=== PATIENT | female | born 1965 | race Caucasian/White ===

== ENCOUNTER → 2016-11-25 | Outpatient (CLI) | payer OTHER ==
[~2016-11-25] MED LIST: AUGM875T27 PO; CYCL10TA PO; DIFL150T PO; NEUR300C PO; OXYC5CAP28 PO
--- NOTE | 2016-11-28 00:24 | ECWPNPC ---
PATIENT NAME: LOU FIGUEROA : 1965 GENDER: FEMALE VISIT DATE: 11/25/2016 DISCHARGE DATE: 11/25/16 1252 VISIT LOCKED DATE TIME: PHYSICIAN: KANDICE WELDON RESOURCE: KANDICE WELDON REASON FOR APPOINTMENT 1. BACK PAIN HISTORY OF PRESENT ILLNESS HISTORY OF PRESENT ILLNESS: PAIN THE PATIENT DESCRIBES THE PAIN... 51 YEAR OLD FEMALE PATIENT WITH HISTORY OF CHRONIC BACK PAIN. PATIENT DESCRIBES THE PAIN ACHING, SORE, AND HAVING IT ALL THE TIME WITH A PAIN SCORE OF 7/10. PATIENT STATES THAT THE ULCER ON THE BACK HAS HEALED BUT SHE HAS DEVELOPED THEM ON HER SHOULDERS, PATIENT'S PRIMARY TESTED FOR MRSA AND IT CAME BACK NEGATIVE. PATIENT IS GOING TO BE TESTED AGAIN THIS WEEK. CURRENTLY MRS. LOUIE IS USING GABAPENTIN AND IBUPROFEN WHICH SHE STATES DOES HELP WITH THE PAIN. AT THIS TIME ANY ACTIVITY INCLUDING STANDING, WALKING, AND SITTING FOR TOO LONG INCREASES THE PAIN IN HER LOWER BACK. PATIENT REPORTS STILL HAVING BAD LEG CRAMPS THROUGHOUT THE NIGHT. PATIENT DENIES UNEXPLAINABLE WEIGHT LOSS, FEVER, CHILLS, NEW CHANGES ON HER URINARY OR BOWEL CONTROL. FALL RISK SCREENING: SCREENING :NO FALLS IN THE PAST YEAR CURRENT MEDICATIONS TAKING IBUPROFEN 800 MG TABLET 1 TABLET ORALLY WITH FOOD PRN THREE TIMES A DAY FOR PAIN, NOTES: 08/13/16 2030 TAKING GABAPENTIN 300 MG CAPSULE 1 CAPSULE ORALLY THREE TIMES A DAY, NOTES: 08/14/16 0500 TAKING VITAMIN D 2000 UNIT TABLET 1 TABLET ORALLY ONCE A DAY, NOTES: 08/14/16 0500 NOT-TAKING VITAMIN B-2 .1.25 TABLET 1 TABLET WITH A MEAL ORALLY WEEKLY NOT-TAKING NAPROXEN 500 MG TABLET 1 TABLET NEEDED ORALLY EVERY 12 HRS MEDICATION LIST REVIEWED AND RECONCILED WITH THE PATIENT PAST MEDICAL HISTORY NONE ALLERGIES LATEX (FOR ALLERGY USE ONLY): HIVES CIPRO: HIVES PLASTIC SURGICAL TAPE: BLISTERS SURGICAL HISTORY SPINAL FUSION 05/19/2015 INFECTION CLEAN OUT FROM FUSION SITE 07/24/2015 NECK FUSION 06/2006 CSF LEAK 07/25/08 LEFT KNEE MENISCUS REPAIR 05/2010 GALLBLADDER REMOVAL 2004 TUBAL LIGATION 1996 ANTERIOR NECK FUSION 01/2006 FAMILY HISTORY NO FAMILY HISTORY DOCUMENTED. 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 NEW PATIENT PAIN DIARY TODAY'S VISITNOTES FROM 0-10, WHAT LEVEL IS YOUR PAIN TODAY?0 PAIN CLINIC PFS, CLERGY, PUBLIC HEALTH REFERRALS PFS REFERRAL NEEDED?NO CLERGY REFERRAL NEEDED?NO PUBLIC HEALTH REFERRAL NEEDED?NO WAS THE PROVIDER NOTIFIED OF ANY PERTINENT INFO?NO PFS REFERRAL NEEDED?NO CLERGY REFERRAL NEEDED?NO PUBLIC HEALTH REFERRAL NEEDED?NO WAS THE PROVIDER NOTIFIED OF ANY PERTINENT INFO?NO HOSPITALIZATION/MAJOR DIAGNOSTIC PROCEDURE SPINAL FUSION 05/19/15 BONE INFECTION 07/24/15 ANTERIOR NECK 06/2006 CSF LEAK REVIEW OF SYSTEMS CONSTITUTIONAL: ANY CHANGE IN YOUR MEDICAL CONDITION? NO . CHILLS NO . FEVER NO . INFECTION: DO YOU HAVE NEW INFECTIONS? NO . DO YOU HAVE HISTORY OF MRSA? YES ON BACK, STILL HAS OPEN LESIONS ON SHOULDERS. TESTED (-) ON 11/14/16 . MUSCULOSKELETAL: ANY NEW PATTERNS OF PAIN OR NUMBNESS? NO . GASTROENTEROLOGY: ANY NEW CHANGE IN BOWEL CONTROL? NO . GENITOURINARY: ANY NEW CHANGE IN BLADDER CONTROL? NO . IS THERE A CHANCE YOU COULD BE ? NO . HEMATOLOGY/LYMPH: DO YOU TAKE ANY BLOOD THINNERS? (FOR EXAMPLE- COUMADIN, PLAVIX, AGGRENOX, PLATEL, PRADAXA, OR XARELTO) NO . WHEN WAS YOUR LAST DOSE? DATE: TIME: . NEUROLOGY: HAVE YOU FALLEN IN THE PAST 6 MONTHS? NO . ANY NEW EXTREMITY NUMBNESS OR WEAKNESS? NO . CARDIOLOGY: DO YOU HAVE A PACEMAKER OR DEFIBRILLATOR? NO . RESPIRATORY: HAVE YOU BEEN SICK IN THE PAST WEEK? NO . FEVER NO . FLU LIKE SYMPTOMS? NO . COUGH NO . INTEGUMENTARY: DO YOU HAVE ANY RASHES OR OPEN SORES? YES, LESIONS BILAT. SHOULDERS . ALLERGIC/IMMUNO: ARE YOU ALLERGIC TO SHELLFISH OR IV DYE? NO . ANY NEW ALLERGIES? NO . PSYCHIATRIC: DO YOU HAVE THOUGHTS OF HURTING YOURSELF OR SOMEONE ELSE? NO . ARE YOU ABUSED, NEGLECTED, OR IN AN UNSAFE ENVIRONMENT? NO . ENDOCRINOLOGY: ARE YOU DIABETIC? NO . OTHER: DO YOU NEED ANY PRESCRIPTIONS? NO . IF YES, PLEASE LIST: ____ . ANY NEW PROBLEMS WITH YOUR MEDICATIONS? NO . WHEN DID YOU LAST EAT? ____ . WHEN DID YOU LAST DRINK? ____ . WHAT DID YOU LAST DRINK? ____ . NAME OF PERSON DRIVING YOU HOME? ____ . DO YOU HAVE ANY OTHER QUESTIONS OR CONCERNS NO . REVIEWED BY: PROVIDER: KANDICE WELDON MD . VITAL SIGNS WT 239 LBS, HT 62 IN, BMI 43.71 INDEX, BP 151/87 MM HG, HR 94 /MIN, RR 18 /MIN, TEMP 98.2 F, OXYGEN SAT % 98, NA INITIALS TL 1014, REVIEWED BY: AD. EXAMINATION : PATIENT IS ALERT O X 3 AND COOPERATIVE. TENDERNESS IN THE SACROILIAC JOINT AND LOWER BACK AREA. PATIENT RECEIVED MRI ON 07/02/16 OF LUMBAR SPINE THAT SHOWS SCAR TISSUE FROM L3-L5, DISC BULGES AT L2-L3 THROUGH L5-S1, AND FLUID COLLECTION HAS DISSIPATED. PATIENT HAS AN ULCER NEAR THE LAMINECTOMY SITE. PATIENT WALK IS ANTALGIC. LEFT LEG IS WEAKER THEN THE RIGHT AT EXTENSION AND FLEXION. 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 LOUIE'S PAIN MANAGEMENT CASE. AT THIS TIME THE PATIENT WILL CONTINUE WITH THE SAME MEDICATION REGIME BEFORE. WE DISCUSSED MOVING FORWARD WITH INJECTIONS BUT I WOULD LIKE TO GET A CLEARANCE FROM THE PATIENT'S PRIMARY TO BE CERTAIN THE PATIENT DOES NOT HAVE MRSA. I AM GOING TO CHECK ON THE PREVIOUS AUTHORIZATION WE HAVE FOR THE PATIENT. IF WE RECEIVE CLEARANCE FROM THE PRIMARY WE WILL MOVE FORWARD WITH THE INJECTION, HOWEVER, IF THE PATIENT DOES NOT GET CLEARED THE PATIENT WILL RETURN TO THE CLINIC IN 1 MONTH TO FURTHER DISCUSS HER CASE. INSTRUCTIONS WERE GIVEN, QUESTIONS WERE ANSWERED, PATIENT REPORTS UNDERSTANDING AND AGREES WITH THE PLAN. I, KRISTOFER MACDONALD, DOCUMENTED THE ABOVE INFORMATION ACTING A SCRIBE FOR DR. WLEDON. I HAVE REVIEWED THE ABOVE DOCUMENT, WRITTEN BY KRISTOFER MARTINEZ AND I VERIFY THAT IT IS ACCURATE. PROCEDURE CODES FA211 ESTABILISHED PATIENT [facility] CHARGE G8427 DOC MEDS VERIFIED W/PT OR RE I9330 PAIN ASSESS POS TOOL F/U PLAN DOC FOLLOW UP 4 WEEKS ELECTRONICALLY SIGNED BY KANDICE WELDON MD ON 11/27/2016 AT 01:21 PM EST DISCLAIMER : THIS IS A VISIT SUMMARY EXTRACTED FROM THE [employer] CHART. IT IS NOT A COPY OF THE [employer] PROGRESS NOTE. AMILCAR
== END ==
LOC: M PAIN 10:20
PROVIDERS: ATTEND Anesthesiology
DX: M96.1 Postlaminectomy syndrome, not elsewhere classified (principal); M51.17 Intervertebral disc disorders with radiculopathy, lumbosacral region; M51.16 Intervertebral disc disorders with radiculopathy, lumbar region; Z79.899 Other long term (current) drug therapy; Z91.040 Latex allergy status; Z88.1 Allergy status to other antibiotic agents; Z91.09 Other allergy status, other than to drugs and biological substances

== ENCOUNTER → 2016-11-28 | Outpatient (REF) | payer OTHER | LOC: M LAB REF 15:13 | PROVIDERS: ATTEND Family Medicine | DX: Z86.14 Personal history of Methicillin resistant Staphylococcus aureus infection (principal) ==

== ENCOUNTER → 2017-01-28 | Outpatient (CLI) | payer OTHER ==
--- NOTE | 2017-02-04 02:27 | ECWPNPC ---
PATIENT NAME: LOU FIGUEROA : 1965 GENDER: FEMALE VISIT DATE: 01/28/2017 DISCHARGE DATE: 01/28/178 VISIT LOCKED DATE TIME: PHYSICIAN: KANDICE WELDON RESOURCE: KANDICE WELDON REASON FOR APPOINTMENT 1. FOLLOW UP HISTORY OF PRESENT ILLNESS HISTORY OF PRESENT ILLNESS: PAIN THE PATIENT DESCRIBES THE PAIN... 51 YEAR OLD FEMALE PATIENT WITH HISTORY OF CHRONIC BACK PAIN. PATIENT DESCRIBES THE PAIN HAVING IT ALL THE TIME WITH A PAIN SCORE OF 8-9/10 ON TODAY'S VISIT. PATIENT REPORTS THAT THE PAIN STARTED ABOUT 2 YEARS AGO AFTER BACK SURGERY AND THE PATIENT IS FAR WORST NOW THAT BEFORE THE SURGERY. PATIENT REPORTS THAT SHE SAW HER PCP OVER A MONTH AGO AND THEY RAN THE TEST A THIRD TIME FOR MRSA AND SHE WAS NEGATIVE. PATIENT REPORTS THAT SHE HAS RADIATING PAIN DOWN THE SIDE OF HER LEFT LEG INTO HER LEFT FOOT FROM HER BACK. PATIENT REPORTS THAT HER BACK HURTS THE MOST TODAY. SOME DAYS SHE HAS A DIFFICULT TIME WALKING AND STANDING, TODAY SHE REPORTS THAT SHE IS NOT DOING TOO BAD. PATIENT REPORTS THAT THE MEDICATION DOES NOT TAKE ALL THE PAIN AWAY, BUT IT WOULD BE WORST WITHOUT THEM. PATIENT STATES THAT THE ULCER SHE HAD ON THE LAST VISIT IS HEALED UP AT THIS POINT. , PATIENT DENIES UNEXPLAINABLE WEIGHT LOSS, FEVER, CHILLS, NEW CHANGES ON HER URINARY OR BOWEL CONTROL. FALL RISK SCREENING: SCREENING :NO FALLS IN THE PAST YEAR CURRENT MEDICATIONS TAKING IBUPROFEN 800 MG TABLET 1 TABLET ORALLY WITH FOOD PRN THREE TIMES A DAY FOR PAIN, NOTES: 08/13/16 2030 TAKING GABAPENTIN 300 MG CAPSULE 1 CAPSULE ORALLY THREE TIMES A DAY, NOTES: 08/14/16 0500 TAKING VITAMIN D 2000 UNIT TABLET 1 TABLET ORALLY ONCE A DAY, NOTES: 08/14/16 0500 TAKING ZYRTEC 10 MG TABLET 1 TABLET ORALLY ONCE A DAY NOT-TAKING VITAMIN B-2 .1.25 TABLET 1 TABLET WITH A MEAL ORALLY WEEKLY NOT-TAKING NAPROXEN 500 MG TABLET 1 TABLET NEEDED ORALLY EVERY 12 HRS MEDICATION LIST REVIEWED AND RECONCILED WITH THE PATIENT PAST MEDICAL HISTORY NONE ALLERGIES LATEX (FOR ALLERGY USE ONLY): HIVES CIPRO: HIVES PLASTIC SURGICAL TAPE: BLISTERS SURGICAL HISTORY SPINAL FUSION 05/19/2015 INFECTION CLEAN OUT FROM FUSION SITE 07/24/2015 NECK FUSION 06/2006 CSF LEAK 07/25/08 LEFT KNEE MENISCUS REPAIR 05/2010 GALLBLADDER REMOVAL 2004 TUBAL LIGATION 1996 ANTERIOR NECK FUSION 01/2006 FAMILY HISTORY NO FAMILY HISTORY DOCUMENTED. 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 NEW PATIENT PAIN DIARY TODAY'S VISITNOTES FROM 0-10, WHAT LEVEL IS YOUR PAIN TODAY?0 PAIN CLINIC PFS, CLERGY, PUBLIC HEALTH REFERRALS PFS REFERRAL NEEDED?NO CLERGY REFERRAL NEEDED?NO PUBLIC HEALTH REFERRAL NEEDED?NO WAS THE PROVIDER NOTIFIED OF ANY PERTINENT INFO?NO PFS REFERRAL NEEDED?NO CLERGY REFERRAL NEEDED?NO PUBLIC HEALTH REFERRAL NEEDED?NO WAS THE PROVIDER NOTIFIED OF ANY PERTINENT INFO?NO HOSPITALIZATION/MAJOR DIAGNOSTIC PROCEDURE SPINAL FUSION 05/19/15 BONE INFECTION 07/24/15 ANTERIOR NECK 06/2006 CSF LEAK REVIEW OF SYSTEMS CONSTITUTIONAL: ANY CHANGE IN YOUR MEDICAL CONDITION? NO . CHILLS NO . FEVER NO . INFECTION: DO YOU HAVE NEW INFECTIONS? NO . DO YOU HAVE HISTORY OF MRSA? NO . MUSCULOSKELETAL: ANY NEW PATTERNS OF PAIN OR NUMBNESS? YES PT REPORTS INCREASED PAIN LEVEL, AND PAIN HAS EXTENDED TO BOTTOM OF HER LEFT FOOT. NUMBNESS/TINGLING UNCHANGED . GASTROENTEROLOGY: ANY NEW CHANGE IN BOWEL CONTROL? NO . GENITOURINARY: ANY NEW CHANGE IN BLADDER CONTROL? NO . IS THERE A CHANCE YOU COULD BE ? NO . HEMATOLOGY/LYMPH: DO YOU TAKE ANY BLOOD THINNERS? (FOR EXAMPLE- COUMADIN, PLAVIX, AGGRENOX, PLATEL, PRADAXA, OR XARELTO) NO . WHEN WAS YOUR LAST DOSE? DATE: TIME: . NEUROLOGY: HAVE YOU FALLEN IN THE PAST 6 MONTHS? NO . ANY NEW EXTREMITY NUMBNESS OR WEAKNESS? NO . CARDIOLOGY: DO YOU HAVE A PACEMAKER OR DEFIBRILLATOR? NO . RESPIRATORY: HAVE YOU BEEN SICK IN THE PAST WEEK? NO . FEVER NO . FLU LIKE SYMPTOMS? NO . COUGH NO . INTEGUMENTARY: DO YOU HAVE ANY RASHES OR OPEN SORES? NO . ALLERGIC/IMMUNO: ARE YOU ALLERGIC TO SHELLFISH OR IV DYE? NO . ANY NEW ALLERGIES? NO . PSYCHIATRIC: DO YOU HAVE THOUGHTS OF HURTING YOURSELF OR SOMEONE ELSE? NO . ARE YOU ABUSED, NEGLECTED, OR IN AN UNSAFE ENVIRONMENT? NO . ENDOCRINOLOGY: ARE YOU DIABETIC? NO . OTHER: DO YOU NEED ANY PRESCRIPTIONS? YES MOTRIN . IF YES, PLEASE LIST: ____ . ANY NEW PROBLEMS WITH YOUR MEDICATIONS? NO . WHEN DID YOU LAST EAT? ____ . WHEN DID YOU LAST DRINK? ____ . WHAT DID YOU LAST DRINK? ____ . NAME OF PERSON DRIVING YOU HOME? ____ . DO YOU HAVE ANY OTHER QUESTIONS OR CONCERNS NO . REVIEWED BY: PROVIDER: KANDICE WELDON MD . VITAL SIGNS WT 247.4 LBS, HT 62 IN, BMI 45.25 INDEX, BP 161/85 MM HG, HR 91 /MIN, RR 18 /MIN, TEMP 97.7 F, OXYGEN SAT % 98, NA INITIALS HS. EXAMINATION : PATIENT IS ALERT O X 3 AND COOPERATIVE. PATIENT AMBULATES WITH A LIMP ON THE LEFT LEG. HER LEFT LEG IS WEAKER AT FLEXION AND EXTENSION COMPARED TO THE RIGHT. PATIENT HAS TENDERNESS IN THE LEFT LOW BACK AREA. PATIENT RECEIVED MRI ON 07/02/16 OF LUMBAR SPINE THAT SHOWS SCAR TISSUE FROM L3-L5, DISC BULGES AT L2-L3 THROUGH L5-S1, AND FLUID COLLECTION HAS DISSIPATED. ASSESSMENTS POSTLAMINECTOMY SYNDROME, NOT ELSEWHERE CLASSIFIED - M96.1 (PRIMARY) INTERVERTEBRAL DISC DISORDERS WITH RADICULOPATHY, LUMBAR REGION - M51.16 INTERVERTEBRAL DISC DISORDERS WITH RADICULOPATHY, LUMBOSACRAL REGION - M51.17 TREATMENT POSTLAMINECTOMY SYNDROME, NOT ELSEWHERE CLASSIFIED REFILL IBUPROFEN TABLET, 800 MG, 1 TABLET, ORALLY WITH FOOD, PRN THREE TIMES A DAY FOR PAIN, 30 DAY(S), 75, REFILLS 1, NOTES: 08/13/16 2030 REFILL GABAPENTIN CAPSULE, 300 MG, 1 CAPSULE, ORALLY, FOUR TIMES DAILY FOR PAIN MDD4, 30 DAY(S), 120, REFILLS 1, NOTES: 08/14/16 0500 NOTES: DISCUSSED SEVERAL ISSUES WITH MRS. LOUIE'S PAIN MANAGEMENT CASE. AT THIS TIME THE PATIENT WILL CONTINUE ON THE SAME MEDICATION REGIMEN BEFORE AND WILL RECEIVE REFILLS TODAY. SINCE THE PATIENT HAS BEEN CLEARED BY THE PRIMARY, I WILL CHECK ON THE CLEARANCE. AFTER EXAMINING THE PATIENT AND REVIEWING THE MRI PATIENT IS STILL A GOOD CANDIDATE FOR A TRANSFORAMINAL INJECTION. WE DISCUSSED THE RISK, BENEFITS, AND ALTERNATIVES AND THE PATIENT WOULD LIKE TO PROCEED. PATIENT WILL BE BOOKED PENDING APPROVAL. , INSTRUCTIONS WERE GIVEN, QUESTIONS WERE ANSWERED, PATIENT REPORTS UNDERSTANDING AND AGREES WITH THE PLAN. I, MARSHALL COHEN, DOCUMENTED THE ABOVE INFORMATION ACTING A SCRIBE FOR DR. WELDON. I HAVE REVIEWED THE ABOVE DOCUMENT, WRITTEN BY MARSHALL COHEN SCRIBE AND I VERIFY THAT IT IS ACCURATE. PREVENTIVE MEDICINE PAIN CLINIC TEACHING: PROCEDURE TEACHING TRANSFORAMINAL MARLYN REVIEWED WITH PATIENT. PROCEDURE CODES G8730 PAIN ASSESS POS TOOL F/U PLAN DOC G8427 DOC MEDS VERIFIED W/PT OR RE DISPOSITION & COMMUNICATION FOLLOW UP LUMBAR TRANSFORAMINAL PENDING APPROVAL ELECTRONICALLY SIGNED BY KANDICE WELDON MD ON 02/03/2017 AT 05:46 PM EDT DISCLAIMER : THIS IS A VISIT SUMMARY EXTRACTED FROM THE [employer] CHART. IT IS NOT A COPY OF THE [employer] PROGRESS NOTE. AMILCAR
== END ==
LOC: M PAIN 15:40
PROVIDERS: ATTEND Anesthesiology
DX: Z09 Encounter for follow-up examination after completed treatment for conditions other than malignant neoplasm (principal); G89.29 Other chronic pain; M96.1 Postlaminectomy syndrome, not elsewhere classified; M51.16 Intervertebral disc disorders with radiculopathy, lumbar region; M51.17 Intervertebral disc disorders with radiculopathy, lumbosacral region; Z91.040 Latex allergy status; L23.1 Allergic contact dermatitis due to adhesives; Z79.1 Long term (current) use of non-steroidal anti-inflammatories (NSAID); Z79.899 Other long term (current) drug therapy

== ENCOUNTER → 2017-02-21 | Outpatient (CLI) | payer OTHER ==
[~2017-02-21] MED LIST changes: +BUPIVACAINE HCL 0.25% 30 ML VIAL As Ordered ONE; +CLINDAMYCIN 600 MG in APPROPRIATE DILUENT 1 EA IV ONE; +ISOVUE-M 300 61% 15ML VIAL (Q9967) As Ordered ONE; +LIDOCAINE 1% SDV INJ 30 ML VIAL As Ordered ONE; +MIDAZOLAM INJ 2 MG/2 ML VIAL (J2250) As Ordered ONE; +dexameTHASONE 10 MG/1 ML VIAL PRES.FREE (J1100) As Ordered ONE; +fentaNYL 100 MCG/2 ML INJECTION (J3010) As Ordered ONE
--- NOTE | 2017-02-21 16:18 | REP ---
Partial lumbar spine series: 47 views. History: Injection procedure for pain. 1 minute 52 seconds of fluoroscopy time is reported. Findings: A sequence of 47 fluoroscopically obtained spot radiographs of the lumbar spine document needle position and contrast injection associated with transforaminal injection procedure. Signed by Stefan Cazares MD 02/21/2017 06:00 P
--- NOTE | 2017-03-03 00:12 | ECWPNPC ---
PATIENT NAME: LOU FIGUEROA : 1965 GENDER: FEMALE VISIT DATE: 02/21/2017 DISCHARGE DATE: 02/21/17 1521 VISIT LOCKED DATE TIME: PHYSICIAN: KANDICE WELDON RESOURCE: KANDICE WELDON REASON FOR APPOINTMENT 1. LEFT TRANSFORAMINAL HISTORY OF PRESENT ILLNESS HISTORY OF PRESENT ILLNESS: PAIN THE PATIENT DESCRIBES THE PAIN... FALL RISK SCREENING: SCREENING :NO FALLS IN THE PAST YEAR CURRENT MEDICATIONS TAKING IBUPROFEN 800 MG TABLET 1 TABLET ORALLY WITH FOOD PRN THREE TIMES A DAY FOR PAIN, NOTES: 02/20/172029 TAKING GABAPENTIN 300 MG CAPSULE 1 CAPSULE ORALLY FOUR TIMES DAILY FOR PAIN MDD4, NOTES: 02/20/172029 TAKING VITAMIN D 2000 UNIT TABLET 1 TABLET ORALLY ONCE A DAY, NOTES: 02/20/17 TAKING ZYRTEC 10 MG TABLET 1 TABLET ORALLY ONCE A DAY, NOTES: 02/20/17 NOT-TAKING VITAMIN B-2 .1.25 TABLET 1 TABLET WITH A MEAL ORALLY WEEKLY NOT-TAKING NAPROXEN 500 MG TABLET 1 TABLET NEEDED ORALLY EVERY 12 HRS MEDICATION LIST REVIEWED AND RECONCILED WITH THE PATIENT PAST MEDICAL HISTORY NONE ALLERGIES LATEX (FOR ALLERGY USE ONLY): HIVES CIPRO: HIVES PLASTIC SURGICAL TAPE: BLISTERS SOCIAL HISTORY GENERAL: PAIN CLINIC PFS, CLERGY, PUBLIC HEALTH REFERRALS CLERGY REFERRAL NEEDED?NO WAS THE PROVIDER NOTIFIED OF ANY PERTINENT INFO?NO PFS REFERRAL NEEDED?NO PUBLIC HEALTH REFERRAL NEEDED?NO PATIENT: ____. REVIEW OF SYSTEMS CONSTITUTIONAL: ANY CHANGE IN YOUR MEDICAL CONDITION? NO . CHILLS NO . FEVER NO . INFECTION: DO YOU HAVE NEW INFECTIONS? NO . DO YOU HAVE HISTORY OF MRSA? YES PT STATES HX OF MRSA WITH 2 NEG CULTURES AFTER. . MUSCULOSKELETAL: ANY NEW PATTERNS OF PAIN OR NUMBNESS? NO . GASTROENTEROLOGY: ANY NEW CHANGE IN BOWEL CONTROL? NO . GENITOURINARY: ANY NEW CHANGE IN BLADDER CONTROL? NO . IS THERE A CHANCE YOU COULD BE ? NO . HEMATOLOGY/LYMPH: DO YOU TAKE ANY BLOOD THINNERS? (FOR EXAMPLE- COUMADIN, PLAVIX, AGGRENOX, PLATEL, PRADAXA, OR XARELTO) NO . WHEN WAS YOUR LAST DOSE? DATE: TIME: . NEUROLOGY: HAVE YOU FALLEN IN THE PAST 6 MONTHS? NO . ANY NEW EXTREMITY NUMBNESS OR WEAKNESS? NO . CARDIOLOGY: DO YOU HAVE A PACEMAKER OR DEFIBRILLATOR? NO . RESPIRATORY: HAVE YOU BEEN SICK IN THE PAST WEEK? NO . FEVER NO . FLU LIKE SYMPTOMS? NO . COUGH NO . INTEGUMENTARY: DO YOU HAVE ANY RASHES OR OPEN SORES? YES LEFT SHOULDER-VISUALIZED BY DR WELDON . ALLERGIC/IMMUNO: ARE YOU ALLERGIC TO SHELLFISH OR IV DYE? NO . ANY NEW ALLERGIES? NO . PSYCHIATRIC: DO YOU HAVE THOUGHTS OF HURTING YOURSELF OR SOMEONE ELSE? NO . ARE YOU ABUSED, NEGLECTED, OR IN AN UNSAFE ENVIRONMENT? NO . ENDOCRINOLOGY: ARE YOU DIABETIC? NO . OTHER: DO YOU NEED ANY PRESCRIPTIONS? NO . IF YES, PLEASE LIST: ____ . ANY NEW PROBLEMS WITH YOUR MEDICATIONS? NO . WHEN DID YOU LAST EAT? ____02/20/171929 . WHEN DID YOU LAST DRINK? ____02/20/172029 . WHAT DID YOU LAST DRINK? ____WATER . NAME OF PERSON DRIVING YOU HOME? ____CHARLIE . DO YOU HAVE ANY OTHER QUESTIONS OR CONCERNS NO . REVIEWED BY: PROVIDER: . VITAL SIGNS WT 237 LBS, HT 62 IN, BMI 43.34 INDEX, BP 156/87 MM HG, HR 76 /MIN, RR 18 /MIN, TEMP 99.3 F, OXYGEN SAT % 98%, NA INITIALS SC 11:02, REVIEWED BY: MLF. ASSESSMENTS INTERVERTEBRAL DISC DISORDERS WITH RADICULOPATHY, LUMBAR REGION - M51.16 (PRIMARY) PROCEDURES PN LUMBAR TRANSFORAMINAL BLOCKS PRE PROCEDURE DIAGNOSIS LUMBAR POST LAMINECTOMY PAIN SYNDROME POST PROCEDURE DIAGNOSIS LUMBAR POST LAMINECTOMY PAIN SYNDROME PROCEDURE LEFT L4 AND LEFT L5 TRANSFORAMINAL EPIDURAL STEROID INJECTION UNDER FLUOROSCOPIC GUIDANCE SURGEON DR KANDICE WELDON DEVELOPMENT COORDINATOR NONE ANESTHESIA LOCAL WITH IV SEDATION PRE PROCEDURE NOTE PATIENT WITH HISTORY OF CHRONIC LOW BACK PAIN. I EVALUATE THE PATIENT AND REVIEWED THE CHART. I WENT OVER THE RISKS, ALTERNATIVES, AND BENEFITS ASSOCIATED WITH THIS PROCEDURE. PATIENTS WANTS TO HAVE IV SEDATION DUE TO THE DISCOMFORT, PAIN, AND ANXIETY THIS PROCEDURE WILL CAUSE HER. I ALSO DISCUSSED THE CASE WITH THE PATIENTS PRIMARY CARE PHYSICIAN. THE PATIENT WOULD LIKE TO PROCEED AND GIVE CONSENT TO PERFORMED THE PROCEDURE WITH IV SEDATION. THE PATIENT DENIES UNEXPLAINABLE WEIGHT LOSS, FEVER, CHILLS, OR CHANGES IN URINARY OR BOWEL CONTROL DESCRIPTION OF PROCEDURE THE PATIENT WAS BROUGHT TO THE PROCEDURE ROOM AND PLACED IN THE PRONE POSITION. THE LUMBOSACRAL AREA WAS CLEANED WITH BETADINE SOLUTION AND DRAPED ASEPTICALLY. THE PROCEDURE WAS DONE UNDER STERILE CONDITIONS. I CHECKED LATERALITY AND THE LEVEL WHERE THE PROCEDURE WAS GOING TO BE PERFORMED WITH THE PATIENT AND THE SUPPORTING STAFF AT THE MOMENT OF THE TIME OUT IN THE PROCEDURE ROOM. UNDER FLUOROSCOPIC GUIDANCE, TARGETS WERE SELECTED AT THE LEFT TRANSFORAMINAL OPENING OF L4 AND L5. TARGET POINT WAS SELECTED AFTER LATERAL ROTATION AND TILT OF THE MAGNIFIER OF THE C-ARM. LIDOCAINE 0.5% WAS USED TO NUMB THE SKIN AND THE SUBCUTANEOUS TISSUE BELOW IT. AN EPIMED INTRODUCER 18-GAUGE WAS ADVANCED UNTIL WE WENT CLOSE TO THE SELECTED TRANSFORAMINAL OPENINGS. AFTER PROPER POSITION OF THE NEEDLES WAS ACHIEVED, A 22-GAUGE EPIMED NEEDLE WAS PLACED INSIDE OF THE INTRODUCER AND ADVANCED TO THE TRANSFORAMINAL OPENING OF THE SELECTED SITES. WHEN PROPER POSITION OF THE NEEDLE WAS ACHIEVED, ISOVUE M DYE 30%, 0.25 ML, WAS INJECTED SHOWING ADEQUATE SPREAD OF THE DYE. THIS WAS DONE UNDER DIGITAL SUBTRACTION AND ANGIOGRAPHY. THERE WAS NO VASCULAR UPDATE. THEN, A SOLUTION OF 2 ML OF BUPIVACAINE 0.25% AND DEXAMETHASONE 10 MG WAS INJECTED AT EACH SITE. PATIENT RECEIVED VERSED 2 MG AND FENTANYL 100 MCG IV DIVIDED DOSES. FACE TO FACE TIME WAS 45 MINUTES. THERE WAS NO EVIDENCE OF BLOOD, PARESTHESIA OR CEREBROSPINAL FLUID DURING THE PROCEDURE. THE PATIENT WAS SENT TO THE RECOVERY ROOM. THE PATIENT WAS MOVING THE EXTREMITIES AND DOING WELL. THERE WAS NO COMPLICATION DURING THE PROCEDURE. FLUOROSCOPY TIME WAS 1 MINUTE 52 SECONDS POST PROCEDURE NOTE THE PROCEDURE DONE WAS DISCUSSED WITH THE PATIENT. THE PATIENT WILL BE SEEN IN A FOLLOW UP IN THE NEXT FEW WEEKS. INSTRUCTIONS WERE GIVEN, QUESTIONS WERE ANSWERED, AND THE PATIENT EXPRESSED UNDERSTANDING AND AGREES WITH THE PLAN. I, MARSHALL COHEN, DOCUMENTED THE ABOVE INFORMATION ACTING A SCRIBE FOR DR. WELDON. I HAVE REVIEWED THE ABOVE DOCUMENT, WRITTEN BY MARSHALL COHEN SCRIBSelma AND I VERIFY THAT IT IS ACCURATE. DIAGNOSTIC IMAGING [facility] FLUORO GUIDE SPINE INJECTION (PAIN)[id number] PROCEDURE CODES 37072 INJ FORAMEN EPIDURAL L/S 56885 INJ FORAMEN EPIDURAL ADD-ON 6045F RADXPS IN END [id number] PXD 64591 MOD SED SAME PHYS/QHP 5/>YRS 08[address] [place] SED [place] PHYS/[place] [address] MOD SED SAME PHYS/QHP EA DISPOSITION & COMMUNICATION FOLLOW UP 3 WEEKS ELECTRONICALLY SIGNED BY KANDICE WELDON MD ON 03/02/2017 AT 05:52 PM EDT DISCLAIMER : THIS IS A VISIT SUMMARY EXTRACTED FROM THE [employer] CHART. IT IS NOT A COPY OF THE [employer] PROGRESS NOTE. AMILCAR
== END ==
LOC: M PAIN 11:00
PROVIDERS: ATTEND Anesthesiology
DX: G89.29 Other chronic pain (principal); M51.16 Intervertebral disc disorders with radiculopathy, lumbar region; Z91.040 Latex allergy status; Z88.8 Allergy status to other drugs, medicaments and biological substances; L23.1 Allergic contact dermatitis due to adhesives; Z79.1 Long term (current) use of non-steroidal anti-inflammatories (NSAID); Z79.899 Other long term (current) drug therapy
CPT/HCPCS: 64483; 64484; 99152; 99153; J1100; J2250; J3010; Q9967

== ENCOUNTER → 2017-03-11 | Outpatient (CLI) | payer OTHER ==
[~2017-03-11] MED LIST changes: -BUPIVACAINE HCL 0.25% 30 ML VIAL As Ordered ONE; -CLINDAMYCIN 600 MG in APPROPRIATE DILUENT 1 EA IV ONE; -ISOVUE-M 300 61% 15ML VIAL (Q9967) As Ordered ONE; -LIDOCAINE 1% SDV INJ 30 ML VIAL As Ordered ONE; -MIDAZOLAM INJ 2 MG/2 ML VIAL (J2250) As Ordered ONE; -dexameTHASONE 10 MG/1 ML VIAL PRES.FREE (J1100) As Ordered ONE; -fentaNYL 100 MCG/2 ML INJECTION (J3010) As Ordered ONE
--- NOTE | 2017-03-19 01:49 | ECWPNPC ---
PATIENT NAME: LOU FIGUEROA : 1965 GENDER: FEMALE VISIT DATE: 03/11/2017 DISCHARGE DATE: 03/11/17 170 VISIT LOCKED DATE TIME: PHYSICIAN: KANDICE WELDON RESOURCE: KANDICE WELDON REASON FOR APPOINTMENT 1. BACK HISTORY OF PRESENT ILLNESS HISTORY OF PRESENT ILLNESS: PAIN THE PATIENT DESCRIBES THE PAIN... 51 YEAR OLD FEMALE PATIENT WITH HISTORY OF CHRONIC BACK PAIN. PATIENT DESCRIBES THE PAIN BURNING AND HAVING IT ALL THE TIME WITH A PAIN SCORE OF 8/10 ON TODAY'S VISIT. PATIENT RECEIVED A LUMBAR TRANSFORAMINAL INJECTION ON 02/21/2017 AND STATES THAT SHE ONLY RECEIVED ONE DAY OF PAIN RELIEF. PATIENT REPORTS THAT SHE STILL HAS THE RADIATING PAIN THE LEGS, BUT TODAY HER BACK HURTS THE MOST. PATIENT DENIES UNEXPLAINABLE WEIGHT LOSS, FEVER, CHILLS, NEW CHANGES ON HER URINARY OR BOWEL CONTROL. FALL RISK SCREENING: SCREENING :NO FALLS IN THE PAST YEAR CURRENT MEDICATIONS TAKING IBUPROFEN 800 MG TABLET 1 TABLET ORALLY WITH FOOD PRN THREE TIMES A DAY FOR PAIN, NOTES: 02/20/172029 TAKING GABAPENTIN 300 MG CAPSULE 1 CAPSULE ORALLY FOUR TIMES DAILY FOR PAIN MDD4, NOTES: 02/20/172029 TAKING VITAMIN D 2000 UNIT TABLET 1 TABLET ORALLY ONCE A DAY, NOTES: 02/20/17 TAKING ZYRTEC 10 MG TABLET 1 TABLET ORALLY ONCE A DAY, NOTES: 02/20/17 NOT-TAKING VITAMIN B-2 .1.25 TABLET 1 TABLET WITH A MEAL ORALLY WEEKLY NOT-TAKING NAPROXEN 500 MG TABLET 1 TABLET NEEDED ORALLY EVERY 12 HRS MEDICATION LIST REVIEWED AND RECONCILED WITH THE PATIENT PAST MEDICAL HISTORY NONE ALLERGIES LATEX (FOR ALLERGY USE ONLY): HIVES CIPRO: HIVES PLASTIC SURGICAL TAPE: BLISTERS SURGICAL HISTORY SPINAL FUSION 05/19/2015 INFECTION CLEAN OUT FROM FUSION SITE 07/24/2015 NECK FUSION 06/2006 CSF LEAK 07/25/08 LEFT KNEE MENISCUS REPAIR 05/2010 GALLBLADDER REMOVAL 2004 TUBAL LIGATION 1996 ANTERIOR NECK FUSION 01/2006 FAMILY HISTORY NO FAMILY HISTORY DOCUMENTED. SOCIAL HISTORY GENERAL: PAIN CLINIC PFS, CLERGY, PUBLIC HEALTH REFERRALS CLERGY REFERRAL NEEDED?NO WAS THE PROVIDER NOTIFIED OF ANY PERTINENT INFO?NO PFS REFERRAL NEEDED?NO PUBLIC HEALTH REFERRAL NEEDED?NO PATIENT: ____. HOSPITALIZATION/MAJOR DIAGNOSTIC PROCEDURE SPINAL FUSION 05/19/15 BONE INFECTION 07/24/15 ANTERIOR NECK 06/2006 CSF LEAK [id number] REVIEW OF SYSTEMS CONSTITUTIONAL: ANY CHANGE IN YOUR MEDICAL CONDITION? NO . CHILLS NO . FEVER NO . INFECTION: DO YOU HAVE NEW INFECTIONS? NO . DO YOU HAVE HISTORY OF MRSA? NO . MUSCULOSKELETAL: ANY NEW PATTERNS OF PAIN OR NUMBNESS? YES, LEFT FOOT SWOLLEN, NUMBNESS, HURTS TO WALK ON IT. IF ELEVATES LEF/FOOT, SWELLING LESS, BUT ANKLE REMAINS SWOLLEN. . GASTROENTEROLOGY: ANY NEW CHANGE IN BOWEL CONTROL? NO . GENITOURINARY: ANY NEW CHANGE IN BLADDER CONTROL? NO . IS THERE A CHANCE YOU COULD BE ? NO . HEMATOLOGY/LYMPH: DO YOU TAKE ANY BLOOD THINNERS? (FOR EXAMPLE- COUMADIN, PLAVIX, AGGRENOX, PLATEL, PRADAXA, OR XARELTO) NO . WHEN WAS YOUR LAST DOSE? DATE: TIME: . NEUROLOGY: HAVE YOU FALLEN IN THE PAST 6 MONTHS? NO . ANY NEW EXTREMITY NUMBNESS OR WEAKNESS? NO . CARDIOLOGY: DO YOU HAVE A PACEMAKER OR DEFIBRILLATOR? NO . RESPIRATORY: HAVE YOU BEEN SICK IN THE PAST WEEK? NO . FEVER NO . FLU LIKE SYMPTOMS? NO . COUGH NO . INTEGUMENTARY: DO YOU HAVE ANY RASHES OR OPEN SORES? NO . ALLERGIC/IMMUNO: ARE YOU ALLERGIC TO SHELLFISH OR IV DYE? NO . ANY NEW ALLERGIES? NO . PSYCHIATRIC: DO YOU HAVE THOUGHTS OF HURTING YOURSELF OR SOMEONE ELSE? NO . ARE YOU ABUSED, NEGLECTED, OR IN AN UNSAFE ENVIRONMENT? NO . ENDOCRINOLOGY: ARE YOU DIABETIC? NO . OTHER: DO YOU NEED ANY PRESCRIPTIONS? YES, . IF YES, PLEASE LIST: IBUPROFEN . ANY NEW PROBLEMS WITH YOUR MEDICATIONS? NO . WHEN DID YOU LAST EAT? ____ . WHEN DID YOU LAST DRINK? ____ . WHAT DID YOU LAST DRINK? ____ . NAME OF PERSON DRIVING YOU HOME? ____ . DO YOU HAVE ANY OTHER QUESTIONS OR CONCERNS YES, TRANSFORAMINAL EPIDURAL RESULTED IN ONLY ABOUT 24 HOURS WITH RELIEF. PAIN STAYED AN 8/10 SINCE. . REVIEWED BY: PROVIDER: KANDICE WELDON MD . VITAL SIGNS WT 237 LBS, HT 62 IN, BMI 43.34 INDEX, BP 140/79 MM HG, HR 83 /MIN, RR 18 /MIN, TEMP 98.3 F, OXYGEN SAT % 95, NA INITIALS AW 1541, REVIEWED BY: DG. EXAMINATION : PATIENT IS ALERT O X 3 AND COOPERATIVE. PATIENT AMBULATES WITH A LIMP ON THE LEFT LEG. HER LEFT LEG IS WEAKER AT FLEXION AND EXTENSION COMPARED TO THE RIGHT. PATIENT HAS TENDERNESS IN THE LEFT LOW BACK AREA. PATIENT RECEIVED MRI ON 07/02/16 OF LUMBAR SPINE THAT SHOWS SCAR TISSUE FROM L3-L5, DISC BULGES AT L2-L3 THROUGH L5-S1, AND FLUID COLLECTION HAS DISSIPATED. ASSESSMENTS POSTLAMINECTOMY SYNDROME, NOT ELSEWHERE CLASSIFIED - M96.1 (PRIMARY) INTERVERTEBRAL DISC DISORDERS WITH RADICULOPATHY, LUMBAR REGION - M51.16 INTERVERTEBRAL DISC DISORDERS WITH RADICULOPATHY, LUMBOSACRAL REGION - M51.17 TREATMENT POSTLAMINECTOMY SYNDROME, NOT ELSEWHERE CLASSIFIED REFILL IBUPROFEN TABLET, 800 MG, 1 TABLET, ORALLY WITH FOOD, PRN THREE TIMES A DAY FOR PAIN, 30 DAY(S), 75, REFILLS 1, NOTES: 02/20/172029 REFILL GABAPENTIN CAPSULE, 300 MG, 1 CAPSULE, ORALLY, FOUR TIMES DAILY FOR PAIN MDD4, 30 DAY(S), 120, REFILLS 1, NOTES: 02/20/172029 NOTES: WE DISCUSSED SEVERAL ISSUES WITH MRS. LOUIE'S PAIN MANAGEMENT CASE. DUE TO THE INJECTIONS NOT AIDING IN PAIN RELIEF FOR THE PATIENT, I DISCUSSED ONE OF THE OPTIONS WE CAN DO IS A DORSAL COLUMN STIMULATOR. I DISCUSSED IN DETAIL THE PROCESSES AND OUTCOMES WE SHOULD EXPECT FROM THE STIMULATOR FROM THE TRIAL AND THE PERMANENT.. PATIENT REPORTS THAT SHE WOULD LIKE TO PROCEED FORWARD WITH THE DORSAL COLUMN STIMULATOR. I DISCUSSED WITH THE PATIENT THAT I WILL NEED A MORE RECENT THORACIC MRI, I WILL WRITE THE SCRIPT TODAY. 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 I WILL REFER THE PATIENT TO A PSYCHOLOGIST FOR THE PSYCHOLOGICAL EVALUATION NEEDED FOR THE DCS. PROVIDED THE PATIENT SOME BOOKLETS OF THE COMPANIES AVAILABLE TO PROCEED FORWARD WITH THE DCS. , INSTRUCTIONS WERE GIVEN, QUESTIONS WERE ANSWERED, PATIENT REPORTS UNDERSTANDING AND AGREES WITH THE PLAN. I, MARSHALL COHEN, DOCUMENTED THE ABOVE INFORMATION ACTING A SCRIBE FOR DR. WELDON. I HAVE REVIEWED THE ABOVE DOCUMENT, WRITTEN BY MARSHALL COHEN SCRIBSelma AND I VERIFY THAT IT IS ACCURATE. PROCEDURE CODES FA211 ESTABILISHED PATIENT [facility] CHARGE K6506 PAIN ASSESS POS TOOL F/U PLAN DOC G8427 DOC MEDS VERIFIED W/PT OR RE DISPOSITION & COMMUNICATION FOLLOW UP 4 WEEKS ELECTRONICALLY SIGNED BY KANDICE WELDON MD ON 03/17/2017 AT 08:32 PM EDT DISCLAIMER : THIS IS A VISIT SUMMARY EXTRACTED FROM THE [employer] CHART. IT IS NOT A COPY OF THE [employer] PROGRESS NOTE. MTDD
== END ==
LOC: M PAIN 15:40
PROVIDERS: ATTEND Anesthesiology
DX: M96.1 Postlaminectomy syndrome, not elsewhere classified (principal); M51.16 Intervertebral disc disorders with radiculopathy, lumbar region; M51.17 Intervertebral disc disorders with radiculopathy, lumbosacral region; Z91.040 Latex allergy status; L23.1 Allergic contact dermatitis due to adhesives; Z88.8 Allergy status to other drugs, medicaments and biological substances; Z79.1 Long term (current) use of non-steroidal anti-inflammatories (NSAID); Z79.899 Other long term (current) drug therapy

== ENCOUNTER → 2017-03-21 | Outpatient (CLI) | payer OTHER ==
[2017-03-21 08:10] LABS: ALBUMIN 3.4 GM/DL (3.2-5.2); ALBUMIN/GLOBULIN RATIO 0.87 (1.00-1.93); ALKALINE PHOSPHATASE 74 U/L (45-117); ALT/SGPT 31 U/L (12-78); ANION GAP 8 MEQ/L (8-16); AST/SGOT 17 U/L (15-37); BILIRUBIN,TOTAL 0.5 MG/DL (0.2-1.0); BLOOD UREA NITROGEN 14 MG/DL (7-18); CALCIUM LEVEL 8.4 MG/DL (8.5-10.1); CARBON DIOXIDE LEVEL 26 MEQ/L (21-32); CHLORIDE LEVEL 108 MEQ/L (98-107); CREATININE FOR GFR 0.87 MG/DL (0.55-1.02); FREE T4 1.04 NG/DL (0.76-1.46); GLOMERULAR FILTRATION RATE > 60.0 (>51); GLUCOSE, FASTING 99 MG/DL (70-105); POTASSIUM SERUM 4.4 MEQ/L (3.5-5.1); SODIUM LEVEL 142 MEQ/L (136-145); TOTAL PROTEIN 7.3 GM/DL (6.4-8.2)
== END ==
LOC: M LAB 07:04
PROVIDERS: ATTEND Family Medicine
DX: E55.9 Vitamin D deficiency, unspecified (principal); E66.09 Other obesity due to excess calories

== ENCOUNTER → 2017-05-05 | Outpatient (CLI) | payer OTHER ==
--- NOTE | 2017-05-05 17:29 | REP ---
MRI thoracic spine without contrast: History: Back pain. Technique: Sagittal and axial T1 and T2-weighted scans are acquired in the usual fashion with and without fat saturation. Sequences include spin echo, turbo spin-echo, and STIR imaging sequences. MRI findings: Thoracic vertebral body heights are preserved and alignment is normal. Operations Coordinator imaging demonstrates cervical discectomy and posterior element fusion at multiple levels in the cervical spine. There is a large disc protrusion at C7-T1 indenting the ventral margin of the thecal sac and just contacting the ventral margin of the cord. This is larger than on the 2005 prior MRI study of the cervical spine. At T2-3, there is a left-sided disc herniation which flattens the left ventral lateral margin of the cord. At T3-4, there is a right paracentral focal disc protrusion, which indents the ventral margin of the cord. At T4-T5, there is a right sided focal disc protrusion indenting the ventral thecal sac, but not contacting or deforming the cord. At T5-T6, there is a left posterolateral focal disc protrusion effacing the subarachnoid space, but not contacting the cord. At T6-T7, there is some central disc bulging. At T7-T8, there is central disc bulging contacting the ventral margin of the cord. At T10-T11, there is bilateral dorsal ligamentum flavum hypertrophy, which effaces the dorsal subarachnoid space at the T10-11 level and displaces the cord ventrally. Bilateral facet osteoarthritis is seen. No cord compression is seen. No disc herniation is seen. At T11-12, there is some facet hypertrophy bilaterally. Conus medullaris terminates at T12-L1 and is unremarkable. There is a cyst in the upper pole of the right kidney seen at the bottom edge of the imaging field of view measuring 2.4 cm. Impression: Degenerative spondylosis changes with multiple thoracic disc herniations as described above. There is facet osteoarthritis at T10-11 and T11-12 bilaterally and there is some associated ligamentum flavum hypertrophy at T10-11, which effaces the subarachnoid space and displaces the cord ventrally. Disc herniations at T2-3, T3-4 are seen to deform the cord. There is a disc protrusion centrally at C7-T1 which is larger than on prior study and contacts the ventral margin of the cord as well. Signed by Stefan Cazares MD 05/06/2017 09:19 A
== END ==
LOC: M RAD 16:09
PROVIDERS: ATTEND Anesthesiology
DX: M47.894 Other spondylosis, thoracic region (principal); M51.24 Other intervertebral disc displacement, thoracic region

== ENCOUNTER → 2017-06-10 | Outpatient (CLI) | payer OTHER ==
[~2017-06-10] MED LIST changes: -AUGM875T27 PO; +AUGM875T28 PO; +VITA200016 PO; +ZYRT10TA2 PO
--- NOTE | 2017-06-24 00:49 | ECWPNPC ---
PATIENT NAME: LOU FIGUEROA : 1965 GENDER: FEMALE VISIT DATE: 06/10/2017 DISCHARGE DATE: 06/10/17 1559 VISIT LOCKED DATE TIME: PHYSICIAN: KANDICE WELDON RESOURCE: KANDICE WELDON REASON FOR APPOINTMENT 1. DCS HISTORY OF PRESENT ILLNESS HISTORY OF PRESENT ILLNESS: PAIN THE PATIENT DESCRIBES THE PAIN... 51 YEAR OLD FEMALE PATIENT WITH HISTORY OF CHRONIC BACK PAIN. PATIENT DESCRIBES THE PAIN BURNING AND HAVING IT ALL THE TIME WITH A PAIN SCORE OF 8/10 ON TODAY'S VISIT. MRS. FIGUEROA WOULD LIKE TO PROCEED WITH THE DCS TRIAL SHE HAS NOT HAD ADEQUATE RELIEF FROM MEDICATIONS OR INTERVENTIONS. PATIENT REPORTS THAT SHE STILL HAS THE RADIATING PAIN THE LEGS, BUT TODAY HER BACK HURTS THE MOST. PATIENT DENIES UNEXPLAINABLE WEIGHT LOSS, FEVER, CHILLS, NEW CHANGES ON HER URINARY OR BOWEL CONTROL. FALL RISK SCREENING: SCREENING :NO FALLS IN THE PAST YEAR CURRENT MEDICATIONS TAKING IBUPROFEN 800 MG TABLET 1 TABLET ORALLY WITH FOOD PRN THREE TIMES A DAY FOR PAIN, NOTES: 02/20/172029 TAKING GABAPENTIN 300 MG CAPSULE 1 CAPSULE ORALLY FOUR TIMES DAILY FOR PAIN MDD4, NOTES: 02/20/172029 TAKING VITAMIN D 2000 UNIT TABLET 1 TABLET ORALLY ONCE A DAY, NOTES: 02/20/17 TAKING ZYRTEC 10 MG TABLET 1 TABLET ORALLY ONCE A DAY, NOTES: 02/20/17 NOT-TAKING VITAMIN B-2 .1.25 TABLET 1 TABLET WITH A MEAL ORALLY WEEKLY NOT-TAKING NAPROXEN 500 MG TABLET 1 TABLET NEEDED ORALLY EVERY 12 HRS PAST MEDICAL HISTORY NONE ALLERGIES LATEX (FOR ALLERGY USE ONLY): HIVES CIPRO: HIVES PLASTIC SURGICAL TAPE: BLISTERS SURGICAL HISTORY SPINAL FUSION 05/19/2015 INFECTION CLEAN OUT FROM FUSION SITE 07/24/2015 NECK FUSION 06/2006 CSF LEAK 07/25/08 LEFT KNEE MENISCUS REPAIR 05/2010 GALLBLADDER REMOVAL 2004 TUBAL LIGATION 1996 ANTERIOR NECK FUSION 01/2006 HOSPITALIZATION/MAJOR DIAGNOSTIC PROCEDURE SPINAL FUSION 05/19/15 BONE INFECTION 07/24/15 ANTERIOR NECK 06/2006 CSF LEAK REVIEW OF SYSTEMS REVIEWED BY: PROVIDER: KANDICE WELDON MD . CONSTITUTIONAL: ANY CHANGE IN YOUR MEDICAL CONDITION? NO . CHILLS NO . FEVER NO . INFECTION: DO YOU HAVE NEW INFECTIONS? NO . DO YOU HAVE HISTORY OF MRSA? NO . MUSCULOSKELETAL: ANY NEW PATTERNS OF PAIN OR NUMBNESS? YES PRESSURE IS INCREASING NEW NUMBNESS ON THE RIGHT . GASTROENTEROLOGY: ANY NEW CHANGE IN BOWEL CONTROL? NO . GENITOURINARY: ANY NEW CHANGE IN BLADDER CONTROL? NO . IS THERE A CHANCE YOU COULD BE ? NO . HEMATOLOGY/LYMPH: DO YOU TAKE ANY BLOOD THINNERS? (FOR EXAMPLE- COUMADIN, PLAVIX, AGGRENOX, PLATEL, PRADAXA, OR XARELTO) NO . WHEN WAS YOUR LAST DOSE? DATE: TIME: . NEUROLOGY: HAVE YOU FALLEN IN THE PAST 6 MONTHS? NO . ANY NEW EXTREMITY NUMBNESS OR WEAKNESS? NO . CARDIOLOGY: DO YOU HAVE A PACEMAKER OR DEFIBRILLATOR? NO . RESPIRATORY: HAVE YOU BEEN SICK IN THE PAST WEEK? NO . FEVER NO . FLU LIKE SYMPTOMS? NO . COUGH NO . INTEGUMENTARY: DO YOU HAVE ANY RASHES OR OPEN SORES? NO . ALLERGIC/IMMUNO: ARE YOU ALLERGIC TO SHELLFISH OR IV DYE? NO . ANY NEW ALLERGIES? NO . PSYCHIATRIC: DO YOU HAVE THOUGHTS OF HURTING YOURSELF OR SOMEONE ELSE? NO . ARE YOU ABUSED, NEGLECTED, OR IN AN UNSAFE ENVIRONMENT? NO . ENDOCRINOLOGY: ARE YOU DIABETIC? NO . OTHER: DO YOU NEED ANY PRESCRIPTIONS? NO . IF YES, PLEASE LIST: ____ . ANY NEW PROBLEMS WITH YOUR MEDICATIONS? NO . WHEN DID YOU LAST EAT? ____ . WHEN DID YOU LAST DRINK? ____ . WHAT DID YOU LAST DRINK? ____ . NAME OF PERSON DRIVING YOU HOME? ____ . DO YOU HAVE ANY OTHER QUESTIONS OR CONCERNS NO . VITAL SIGNS WT 254 LBS, HT 62 IN, BMI 46.45 INDEX, BP 146/77 MM HG, HR 94 /MIN, RR 18 /MIN, TEMP 98.1 F, OXYGEN SAT % 94%, NA INITIALS AW 1422, REVIEWED BY: KG. EXAMINATION : PATIENT IS ALERT O X 3 AND COOPERATIVE. PATIENT AMBULATES WITH A LIMP ON THE LEFT LEG. HER LEFT LEG IS WEAKER AT FLEXION AND EXTENSION COMPARED TO THE RIGHT. PATIENT HAS TENDERNESS IN THE LEFT LOW BACK AREA. PATIENT RECEIVED MRI ON 07/02/16 OF LUMBAR SPINE THAT SHOWS SCAR TISSUE FROM L3-L5, DISC BULGES AT L2-L3 THROUGH L5-S1, AND FLUID COLLECTION HAS DISSIPATED. THORACIC MRI DONE ON 05/05/17 SHOWS A BILATERAL DORSAL LIGAMENTUM FLAVUM HYPERTROPHY. ASSESSMENTS POSTLAMINECTOMY SYNDROME, NOT ELSEWHERE CLASSIFIED - M96.1 (PRIMARY) INTERVERTEBRAL DISC DISORDERS WITH RADICULOPATHY, LUMBAR REGION - M51.16 INTERVERTEBRAL DISC DISORDERS WITH RADICULOPATHY, LUMBOSACRAL REGION - M51.17 TREATMENT OTHERS NOTES: WE DISCUSSED SEVERAL ISSUES WITH MRS. FIGUEROA' PAIN MANAGEMENT CASE. AT THIS TIME THE PATIENT WILL CONTINUE WITH THE SAME MEDICATION REGIME. PATIENT REPORTS SHE WOULD LIKE TO MOVE FORWARD WITH THE TRIAL WITH [employer]. WE DISCUSSED THE ISSUE WITH THE THORACIC SPINE AND I WOULD LIKE THE PATIENT TO BE SEEN BY DR. ARAM KNOX FOR A SURGICAL CONSULT. WE DISCUSSED DOING THE TRIAL PRIOR TO THE CONSULT. PATIENT WILL PROCEED WITH THE TRIAL AND THEN SEE A SURGICAL CONSULT. PATIENT IS AWARE OF THE COMPLICATIONS DUE TO THE THORACIC BACK AREA. DUE TO PATIENTS HISTORY WITH MRSA SHE WILL BE PLACED ON A ANTIBIOTIC AND A HIBICLENS PRIOR TO THE PROCEDURE. PATIENT IS AWARE SHE WILL STAY ONE NIGHT IN THE HOSPITAL AND WILL RECEIVE ANTIBIOTICS VIA IV WELL AN ORAL ANTIBIOTIC POST PROCEDURE. WE DISCUSSED THE RISKS, BENENFITS, AND ALTERNATIVES OF THE PROCEDURE AND THE PATIENT WOULD LIKE TO PROCEED AT THIS TIME. INSTRUCTIONS WERE GIVEN, QUESTIONS WERE ANSWERED, PATIENT REPORTS UNDERSTANDING AND AGREES WITH THE PLAN. I, KRISTOFER MACDONALD, DOCUMENTED THE ABOVE INFORMATION ACTING A SCRIBE FOR DR. WELDON. I HAVE REVIEWED THE ABOVE DOCUMENT, WRITTEN BY KRISTOFER MARTINEZ AND I VERIFY THAT IT IS ACCURATE. PROCEDURE CODES FA211 ESTABILISHED PATIENT [facility] CHARGE G8427 DOC MEDS VERIFIED W/PT OR RE G8730 PAIN ASSESS POS TOOL F/U PLAN DOC DISPOSITION & COMMUNICATION FOLLOW UP TRIAL 06/23/17 ELECTRONICALLY SIGNED BY KANDICE WELDON MD ON 06/23/2017 AT 07:51 PM EDT DISCLAIMER : THIS IS A VISIT SUMMARY EXTRACTED FROM THE [employer] CHART. IT IS NOT A COPY OF THE [employer] PROGRESS NOTE. MTDD
== END ==
LOC: M PAIN 14:20
PROVIDERS: ATTEND Anesthesiology
DX: M96.1 Postlaminectomy syndrome, not elsewhere classified (principal); M51.16 Intervertebral disc disorders with radiculopathy, lumbar region; M51.17 Intervertebral disc disorders with radiculopathy, lumbosacral region; Z91.040 Latex allergy status; Z88.8 Allergy status to other drugs, medicaments and biological substances; L23.1 Allergic contact dermatitis due to adhesives; Z79.1 Long term (current) use of non-steroidal anti-inflammatories (NSAID); Z79.899 Other long term (current) drug therapy

== ENCOUNTER 2017-06-23 08:24 | Day surgery (SDC) | payer OTHER ==
[~2017-06-23] VITALS: Ht 154.9 cm; Wt 108.9 kg
[2017-06-23] MEDS ORDERED: VANCOMYCIN HCL 1,000 MG, VIAL MATE ADAPTER 1 EACH in D5W 250 ML IV ONE ×2 (08:45→20:00)
[2017-06-23] MEDS ORDERED: LR 1,000 ML IV ONE (08:45)
[2017-06-23] MEDS ORDERED: BUPIVACAINE HCL 0.25% 30 ML VIAL As Ordered ONE (09:50)
[2017-06-23] MEDS ORDERED: LIDOCAINE W/EPINEPHRINE 1% 20ML VIAL As Ordered ONE (09:50)
[2017-06-23] MEDS ORDERED: ISOVUE-300 61% 50ML VIAL (Q9967) As Ordered ONE (09:50)
[2017-06-23] MEDS ORDERED: LIDOCAINE 2% INJ 100 MG/5 ML SDV (FOR ANES.) As Ordered ONE (10:26)
[2017-06-23] MEDS ORDERED: PROPOFOL 200 MG/20 ML VIAL As Ordered ONE (10:26)
[2017-06-23] MEDS ORDERED: fentaNYL 100 MCG/2 ML INJECTION (J3010) As Ordered ONE ×2 (12:23→13:12)
[2017-06-23] MEDS ORDERED: MIDAZOLAM INJ 2 MG/2 ML VIAL (J2250) As Ordered ONE (13:12)
[2017-06-23] MEDS ORDERED: LR 1,000 ML IV SCH (15:15)
[2017-06-23] MEDS ORDERED: PERCOCET 5MG/325MG TAB PO PRN (15:15)
[2017-06-23] MEDS ORDERED: ONDANSETRON 4MG/2ML VIAL (J2405) IV PRN (15:15)
[2017-06-23] MEDS ORDERED: MORPHINE 2 MG/ML 1ML SYRINGE IV PRN (15:15)
[2017-06-23] MEDS ORDERED: METOCLOPRAMIDE INJ 10MG/2ML VIAL (J2765) IV PRN (15:15)
--- NOTE | 2017-06-23 15:15 | REP ---
C-ARM VIEWS DURING PLACEMEN OF DORSAL COLUMN STIMULATOR: Two C-arm views are performed during placement of dorsal column stimulator. On the final image a metallic lead is seen with the tip at the T4-5 level. 4 minutes 38 seconds of fluoroscopy time utilized during the procedure. Signed by Sukhjinder Garcia MD 06/24/2017 12:31 P
[2017-06-23 15:30] VITALS: BP 140/67
[2017-06-23 16:00] VITALS: BP 132/85
[2017-06-23 16:55] VITALS: BP 133/60
--- NOTE | 2017-06-23 16:59 | IPNPDOC ---
Subjective Date Seen The patient was seen on 06/23/17. Subjective Chief Complaint/HPI The patient is a 51-year-old female admitted with a reason for visit of Intervertebral Disc Disorder/Radiculopathy. Events since last encounter patient does not offer any complaints at present. procedure was uneventful , no fever or chills, no ches pain or sob , no abdominal pain , nausea or vomiting. consult requested by Dr Patel. Objective Physical Examination General Exam: Positive: Alert, Cooperative, No Acute Distress Eye Exam: Positive: PERRLA, Conjunctiva & lids normal, EOMI, Negative: Sclera icteric ENT Exam: Positive: Atraumatic, Mucous membr. moist/pink, Pharynx Normal Neck Exam: Positive: Supple, Negative: JVD, thyromegaly Chest Exam: Positive: Clear to auscultation, Normal air movement Heart Exam: Positive: Rate Normal, Regular Rhythm, Normal S1, Normal S2, Negative: Murmurs, Rubs Abdomen Exam: Positive: Normal bowel sounds, Soft, Negative: Tenderness, Hepatospenomegaly Extremity Exam: Positive: Normal pulses, Negative: Clubbing, Cyanosis, Edema Assessment /Plan Problems (1) S/P insertion of spinal cord stimulator Status: Acute Problem Text: for post laminectomy syndrome, intervertebral disc disorder with chronic back pain pain control as per dr Patel. 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
[2017-06-23 18:00] VITALS: BP 132/64
[2017-06-23] MEDS: NORCO, ANEXSIA 5/325MG TABLET (HYDROcodone/ACETAMINOPHEN) PO PRN (18:04)
[2017-06-23 18:53] VITALS: BP 141/67
[2017-06-23 20:00] VITALS: BP 117/88
[2017-06-24] VITALS: BP 134/85
[2017-06-24 04:00] VITALS: BP 123/59
[2017-06-24] MEDS ORDERED: VANCOMYCIN HCL 1,000 MG, VIAL MATE ADAPTER 1 EACH in D5W 250 ML IV ONE (04:00)
[2017-06-24 08:00] VITALS: BP 134/84
[2017-06-24] MEDS: NORCO, ANEXSIA 5/325MG TABLET (HYDROcodone/ACETAMINOPHEN) PO PRN (09:43)
--- NOTE | 2017-07-04 22:17 | ROPAIN ---
DATE OF PROCEDURE: 06/23/2017 PREOPERATIVE DIAGNOSIS: Lumbar postlaminectomy pain syndrome POSTOPERATIVE DIAGNOSIS: Lumbar postlaminectomy pain syndrome. PROCEDURE: Spinal column stimulator trial. ANESTHESIA: Local with monitor anesthesia care. SURGEON: Shayan Acosta MD PREOPERATIVE NOTE: Ms. Ratliff is a 51-year-old female patient with a history of chronic low back and leg pain. The patient has a history of multiple back surgeries. Also, she had received interventions and her pain has persists. The patient has expressed that she would like to have a spinal column stimulator trial. I have discussed the risks, alternatives and benefits associated with this procedure Ms. Neville and she expressed that should like to proceed. The patient has a history of methicillin resistant Staphylococcus aureus (MRSA). During this week, she has followed a protocol of Hibiclens and antibiotics. She received vancomycin 1 gram IV today. Also, the patient has hypertrophy of the ligamentum flavum at T10-T11, as seen on the Magnetic Resonance Imaging (MRI) of thoracic spine done on May 05, 2017. I also reviewed the films, so I have decided to go above this area for my entry point today. I explained to the patient that there is always the chance that we may not be able to get into the appropriate and the patient agrees. PROCEDURE NOTE: After consent was reviewed with the patient, the patient was brought to the procedure room and placed in the prone position. Thoracolumbar area was cleaned with Betadine solution and draped aseptically. The procedure was done under sterile conditions. Under fluoroscopic guidance, I selected the target of T8-T9. Lidocaine was used as localized anesthetic. I advanced a 14 gauge epidural needle to the right side of the lamina of T8 until I touched the right lamina of T8. Then I move towards the epidural space with the loss of resistant technique, I tried to get into the epidural space, but the space between T7 and T8 was very small. After multiple attempts, I decided to try to get to the same space from the left side. As a reference, I decided to keep the needle that I was using on the right side. I used a new needle 14 gauge epidural needle at the left side. I went again to the area of T7 and T8. I used Lidocaine as local anesthetic, touched the left lamina of T8 and then move towards the epidural space with the loss of resistance technique. I confronted the same situation where the space between T7 and T8 was to small to advance the needle. So at this stage, I removed the left 14 gauge needle and used a 17 gauge epidural needle. With the new 17 gauge needle and on the left side, I touched the left lamina of T8 and then I was able to reach the epidural space approximately 7 cm deep into the skin with the loss of resistant technique. I then advanced an introducer from [employer] through this 17 gauge epidural needle. The introducer was advanced into the epidural space as seen in the AP and lateral views. Then, I kept the introducer in place, removed the 17 gauge epidural needle and passed the 14 gauge epidural needle through the introducer until I reached resistance at the space of T7-T8. I used as a reference under X-Ray the needle that was at the right side to avoid advancing this left needle agains the spinal cord soft tissue. When I reached the area of resistance at T7-T8, I accommodate the needle in a way that the introducer was moving softly and gently inside this 14 gauge needle at the left side. Then I removed the introducer from the 14 gauge needle and I passed a 16 contact lead from [employer] through this 14 gauge epidural needle. The lead went smoothly towards the epidural space. I guided the lead to the position of T6 and T7 as seen in the AP and lateral views. I attached an extension cable to this lead, which I attached to the computer system [employer] I started to do a programming, which was a simple 30 minutes programming where I changed the contact use, the voltage, and the position of the lead. The patient was reporting adequate coverage of her pain at mainly the level of T6-T7. So at that moment, I decided to use only 1 lead for this trial due to the technical difficulties of placing the lead and in view of complete coverage of the pain pattern with one lead. I removed the extension and the needle and the stylet and then attached the lead to the patient's skin using Dermabond surgical glue, steri strips and Tegaderm. APs and lateral X-Ray views were taken and keep the patient's electronic records for future reference. Procedure was done without evidence of paresthesias, blood or cerebral spinal fluid. There were no complication during the procedure. AMILCAR
== END 2017-06-24 09:55 | disposition home or self-care (01) ==
LOC: M SDC 08:24 → M PED 15:15 → M OPCLI4PR 06-24 09:55
PROVIDERS: ATTEND Anesthesiology
DX: M96.1 Postlaminectomy syndrome, not elsewhere classified (principal); Z88.1 Allergy status to other antibiotic agents; Z91.040 Latex allergy status; Z79.899 Other long term (current) drug therapy
CPT/HCPCS: 63650; 76000; 96365; 96366; C1778; J2250; J3010; J3370

== ENCOUNTER → 2017-06-27 | Outpatient (CLI) | payer OTHER ==
--- NOTE | 2017-06-27 12:38 | REP ---
Partial thoracic spine series: Three views. History: Injection procedure for pain. 35 seconds of fluoroscopy time is reported. Findings: A sequence of three fluoroscopically obtained last image hold procedural spot radiographs of the lumbar spine document lead position . Signed by Stefan Cazares MD 06/27/2017 12:29 P
--- NOTE | 2017-07-16 00:37 | ECWPNPC ---
PATIENT NAME: LOU FIGUEROA : 1965 GENDER: FEMALE VISIT DATE: 06/27/2017 DISCHARGE DATE: 06/27/17 1202 VISIT LOCKED DATE TIME: PHYSICIAN: KANDICE WELDON RESOURCE: KANDICE WELDON REASON FOR APPOINTMENT 1. LOW BACK PAIN HISTORY OF PRESENT ILLNESS HISTORY OF PRESENT ILLNESS: PAIN THE PATIENT DESCRIBES THE PAIN... 51 YEAR OLD FEMALE PATIENT WITH HISTORY OF CHRONIC LOW BACK PAIN. PATIENT DESCRIBES THE PAIN ACHING AND SORE WITH A PAIN SCORE OF 2/10. PATIENT HAD THE DCS TRIAL AND REPORTS HAVING OVER 50% RELIEF FROM THE DEVICE. MRS. FIGUEROA DID REPORT THAT SHE SLEPT VERY WELL AND FEELS VERY RELIEVED TO BE ABLE TO SLEEP AT NIGHT. AT THIS TIME THE PATIENT STATES SHE WOULD LIKE TO MOVE FORWARD WITH THE PERMANENT DCS. PATIENT DENIES UNEXPLAINABLE WEIGHT LOSS, FEVER, CHILLS, NEW CHANGES ON HER URINARY OR BOWEL CONTROL. FALL RISK SCREENING: SCREENING :NO FALLS IN THE PAST YEAR CURRENT MEDICATIONS TAKING VITAMIN D 2000 UNIT TABLET 1 TABLET ORALLY ONCE A DAY TAKING ZYRTEC 10 MG TABLET 1 TABLET ORALLY ONCE A DAY NOT-TAKING IBUPROFEN 800 MG TABLET 1 TABLET ORALLY WITH FOOD PRN THREE TIMES A DAY FOR PAIN NOT-TAKING GABAPENTIN 300 MG CAPSULE 1 CAPSULE ORALLY FOUR TIMES DAILY FOR PAIN MDD4 NOT-TAKING VITAMIN B-2 .1.25 TABLET 1 TABLET WITH A MEAL ORALLY WEEKLY NOT-TAKING NAPROXEN 500 MG TABLET 1 TABLET NEEDED ORALLY EVERY 12 HRS MEDICATION LIST REVIEWED AND RECONCILED WITH THE PATIENT PAST MEDICAL HISTORY LOW BACK PAIN NECK PAIN ALLERGIES LATEX (FOR ALLERGY USE ONLY): HIVES CIPRO: HIVES PLASTIC SURGICAL TAPE: BLISTERS IBUPROFEN: SWELLING TEGADERM: BLISTERS SURGICAL HISTORY SPINAL FUSION 05/19/2015 INFECTION CLEAN OUT FROM FUSION SITE 07/24/2015 NECK FUSION 06/2006 CSF LEAK 07/25/08 LEFT KNEE MENISCUS REPAIR 05/2010 GALLBLADDER REMOVAL 2004 TUBAL LIGATION 1996 ANTERIOR NECK FUSION 01/2006 DORSAL COLUMN STIMULATOR TRIAL 06/2017 SOCIAL HISTORY GENERAL: TOBACCO USE ARE YOU A:[facility]MOKER PAIN CLINIC PFS, CLERGY, PUBLIC HEALTH REFERRALS PFS REFERRAL NEEDED?NO CLERGY REFERRAL NEEDED?NO PUBLIC HEALTH REFERRAL NEEDED?NO WAS THE PROVIDER NOTIFIED OF ANY PERTINENT INFO?NO HAS THE PATIENT BEEN EDUCATED REGARDING HIS/HER PLAN OF CARE?YES HAS THE PATIENT BEEN EDUCATED REGARDING PAIN, THE RISK FOR PAIN, THE IMPORTANCE OF EFFECTIVE PAIN MANAGEMENT, AND THE PAIN ASSESSMENT PROCESS?YES PATIENT: ____. HOSPITALIZATION/MAJOR DIAGNOSTIC PROCEDURE SPINAL FUSION 05/19/15 BONE INFECTION 07/24/15 ANTERIOR NECK 06/2006 CSF LEAK [id number] REVIEW OF SYSTEMS REVIEWED BY: PROVIDER: KANDICE WELDON MD . CONSTITUTIONAL: ANY CHANGE IN YOUR MEDICAL CONDITION? NO . CHILLS NO . FEVER NO . INFECTION: DO YOU HAVE NEW INFECTIONS? NO . DO YOU HAVE HISTORY OF MRSA? NO . MUSCULOSKELETAL: ANY NEW PATTERNS OF PAIN OR NUMBNESS? NO . GASTROENTEROLOGY: ANY NEW CHANGE IN BOWEL CONTROL? NO . GENITOURINARY: ANY NEW CHANGE IN BLADDER CONTROL? NO . IS THERE A CHANCE YOU COULD BE ? NO . HEMATOLOGY/LYMPH: DO YOU TAKE ANY BLOOD THINNERS? (FOR EXAMPLE- COUMADIN, PLAVIX, AGGRENOX, PLATEL, PRADAXA, OR XARELTO) NO . WHEN WAS YOUR LAST DOSE? DATE: TIME: . NEUROLOGY: HAVE YOU FALLEN IN THE PAST 6 MONTHS? NO . ANY NEW EXTREMITY NUMBNESS OR WEAKNESS? NO . CARDIOLOGY: DO YOU HAVE A PACEMAKER OR DEFIBRILLATOR? NO . RESPIRATORY: HAVE YOU BEEN SICK IN THE PAST WEEK? NO . FEVER NO . FLU LIKE SYMPTOMS? NO . COUGH NO . INTEGUMENTARY: DO YOU HAVE ANY RASHES OR OPEN SORES? YES, BLISTERS UNDER TAPE ON BACK . ALLERGIC/IMMUNO: ARE YOU ALLERGIC TO SHELLFISH OR IV DYE? NO . ANY NEW ALLERGIES? NO . PSYCHIATRIC: DO YOU HAVE THOUGHTS OF HURTING YOURSELF OR SOMEONE ELSE? NO . ARE YOU ABUSED, NEGLECTED, OR IN AN UNSAFE ENVIRONMENT? NO . ENDOCRINOLOGY: ARE YOU DIABETIC? NO . OTHER: DO YOU NEED ANY PRESCRIPTIONS? NO . IF YES, PLEASE LIST: ____ . ANY NEW PROBLEMS WITH YOUR MEDICATIONS? NO . WHEN DID YOU LAST EAT? ____ . WHEN DID YOU LAST DRINK? ____ . WHAT DID YOU LAST DRINK? ____ . NAME OF PERSON DRIVING YOU HOME? ____ . DO YOU HAVE ANY OTHER QUESTIONS OR CONCERNS NO . VITAL SIGNS WT 240 LBS, HT 62 IN, BMI 43.89 INDEX, BP 146/83 MM HG, HR 93 /MIN, RR 18 /MIN, TEMP 97.6 F, OXYGEN SAT % 97%, REVIEWED BY: LAZARO. EXAMINATION : PATIENT IS ALERT O X 3 AND COOPERATIVE. PATIENT AMBULATES WITH A LIMP ON THE LEFT LEG. HER LEFT LEG IS WEAKER AT FLEXION AND EXTENSION COMPARED TO THE RIGHT. PATIENT HAS TENDERNESS IN THE LEFT LOW BACK AREA. PATIENT RECEIVED MRI ON 07/02/16 OF LUMBAR SPINE THAT SHOWS SCAR TISSUE FROM L3-L5, DISC BULGES AT L2-L3 THROUGH L5-S1, AND FLUID COLLECTION HAS DISSIPATED. THORACIC MRI DONE ON 05/05/17 SHOWS A BILATERAL DORSAL LIGAMENTUM FLAVUM HYPERTROPHY .FLUORO WAS DONE TODAY SHOWING LEADS POSITION AND KEPT AT THE PATIENT EMR. ASSESSMENTS POSTLAMINECTOMY SYNDROME, NOT ELSEWHERE CLASSIFIED - M96.1 (PRIMARY) INTERVERTEBRAL DISC DISORDERS WITH RADICULOPATHY, LUMBAR REGION - M51.16 INTERVERTEBRAL DISC DISORDERS WITH RADICULOPATHY, LUMBOSACRAL REGION - M51.17 TREATMENT POSTLAMINECTOMY SYNDROME, NOT ELSEWHERE CLASSIFIED NOTES: WE DISCUSSED SEVERAL ISSUES WITH MRS. FIGUEROA' PAIN MANAGEMENT CASE. AT THIS TIME THE PATIENT WILL CONTINUE WITH THE SAME MEDICATION REGIME. PATIENT REPORTS SHE WOULD LIKE TO MOVE FORWARD WITH THE PERMANENT DCS. PATIENT WILL BE REFERRED TO DR. KNOX'S FOR THE PERMANENT PLACEMENT. INSTRUCTIONS WERE GIVEN, QUESTIONS WERE ANSWERED, PATIENT REPORTS UNDERSTANDING AND AGREES WITH THE PLAN. I, KRISTOFER MACDONALD, DOCUMENTED THE ABOVE INFORMATION ACTING A SCRIBE FOR DR. WELDON. I HAVE REVIEWED THE ABOVE DOCUMENT, WRITTEN BY KRISTOFER MARTINEZ AND I VERIFY THAT IT IS ACCURATE. DIAGNOSTIC IMAGING [facility] FLUORO GUIDANCE (PAIN)[id number] DISPOSITION & COMMUNICATION FOLLOW UP 3 WEEKS ELECTRONICALLY SIGNED BY KANDICE WELDON MD ON 07/15/2017 AT 10:59 AM EDT DISCLAIMER : THIS IS A VISIT SUMMARY EXTRACTED FROM THE [facility] CHART. IT IS NOT A COPY OF THE [facility] PROGRESS NOTE. [facility]
== END ==
LOC: M PAIN 09:45
PROVIDERS: ATTEND Anesthesiology
DX: M96.1 Postlaminectomy syndrome, not elsewhere classified (principal); M51.16 Intervertebral disc disorders with radiculopathy, lumbar region; M51.17 Intervertebral disc disorders with radiculopathy, lumbosacral region; Z91.040 Latex allergy status; L23.1 Allergic contact dermatitis due to adhesives; Z88.6 Allergy status to analgesic agent; Z88.8 Allergy status to other drugs, medicaments and biological substances; Z79.899 Other long term (current) drug therapy
CPT/HCPCS: 76000; G0463

== ENCOUNTER → 2017-08-27 | Outpatient (CLI) | payer OTHER ==
[2017-08-27 13:29] LABS: BASO # 0.1 10^3/uL (0.0-0.2); BASO % 0.7 % (0.0-1.0); EOS # 0.2 10^3/uL (0.0-0.50); EOS % 2.8 % (0.0-3.0); IMMATURE GRANULOCYTE % 0.4 % (0-0); LYMPH # 2.2 10^3/uL (1.5-4.5); LYMPH % 31.4 % (24.0-44.0); MEAN CORPUSCULAR HEMOGLOBIN 30.1 pg (27.0-33.0); MEAN CORPUSCULAR HGB CONC 32.5 g/dl (32.0-36.5); MEAN CORPUSCULAR VOLUME 92.7 fl (80.0-96.0); MONO # 0.4 10^3/uL (0.0-0.8); MONO % 5.2 % (0.0-5.0); NEUTROPHILS # 4.1 10^3/uL (1.8-7.7); NEUTROPHILS % 59.5 % (36.0-66.0); PLATELET COUNT, AUTOMATED 251 10^3/uL (150-450); RED CELL DISTRIBUTION WIDTH 13.4 % (11.5-14.5); WHITE BLOOD COUNT 6.9 10^3/uL (4.0-10.0)
[2017-08-27 13:50] LABS: ALBUMIN 3.8 GM/DL (3.2-5.2); ALBUMIN/GLOBULIN RATIO 0.95 (1.00-1.93); ALKALINE PHOSPHATASE 90 U/L (45-117); ALT/SGPT 42 U/L (12-78); ANION GAP 8 MEQ/L (8-16); AST/SGOT 28 U/L (15-37); BILIRUBIN,TOTAL 0.9 MG/DL (0.2-1.0); BLOOD UREA NITROGEN 11 MG/DL (7-18); CARBON DIOXIDE LEVEL 27 MEQ/L (21-32); CHLORIDE LEVEL 103 MEQ/L (98-107); CREATININE FOR GFR 0.82 MG/DL (0.55-1.02); FREE T4 1.18 NG/DL (0.76-1.46); GLOMERULAR FILTRATION RATE > 60.0 (>51); GLUCOSE, FASTING 93 MG/DL (70-105); POTASSIUM SERUM 4.5 MEQ/L (3.5-5.1); SODIUM LEVEL 138 MEQ/L (136-145); TOTAL PROTEIN 7.8 GM/DL (6.4-8.2)
== END ==
LOC: M SMT 07:52
PROVIDERS: ATTEND Family Medicine
DX: Z01.818 Encounter for other preprocedural examination (principal); E66.01 Morbid (severe) obesity due to excess calories

== ENCOUNTER → 2017-09-02 | Outpatient (REF) | payer OTHER ==
[2017-09-02 10:28] LABS: MEAN CORPUSCULAR HGB CONC 33.9 g/dl (32.0-36.5); MEAN CORPUSCULAR VOLUME 91.3 fl (80.0-96.0); RED CELL DISTRIBUTION WIDTH 13.8 % (11.5-14.5); WHITE BLOOD COUNT 8.3 10^3/uL (4.0-10.0)
[2017-09-02 10:35] LABS: CBCMD ORDERED? YES (YES)
[2017-09-02 11:03] LABS: BASOPHILS 1 % (0-4); EOSINOPHILS 1 % (0-5)
== END ==
LOC: M LAB REF 09:59
PROVIDERS: ATTEND Family Medicine
DX: D75.1 Secondary polycythemia (principal)

== ENCOUNTER → 2017-09-23 | Outpatient (CLI) | payer OTHER ==
[2017-09-23 13:17] LABS: BASO % 0.6 % (0.0-1.0); EOS # 0.2 10^3/uL (0.0-0.50); EOS % 2.4 % (0.0-3.0); IMMATURE GRANULOCYTE % 0.2 % (0-0); LYMPH # 1.9 10^3/uL (1.5-4.5); LYMPH % 30.1 % (24.0-44.0); MEAN CORPUSCULAR HEMOGLOBIN 29.9 pg (27.0-33.0); MEAN CORPUSCULAR HGB CONC 32.5 g/dl (32.0-36.5); MONO # 0.4 10^3/uL (0.0-0.8); MONO % 5.8 % (0.0-5.0); NEUTROPHILS # 3.9 10^3/uL (1.8-7.7); NEUTROPHILS % 60.9 % (36.0-66.0); PLATELET COUNT, AUTOMATED 226 10^3/uL (150-450); RED CELL DISTRIBUTION WIDTH 14.1 % (11.5-14.5); WHITE BLOOD COUNT 6.4 10^3/uL (4.0-10.0)
[2017-09-23 13:23] LABS: INR 0.96
[2017-09-23 13:24] LABS: ANION GAP 7 MEQ/L (8-16); BLOOD UREA NITROGEN 17 MG/DL (7-18); CALCIUM LEVEL 9.1 MG/DL (8.5-10.1); CARBON DIOXIDE LEVEL 26 MEQ/L (21-32); CHLORIDE LEVEL 107 MEQ/L (98-107); CREATININE FOR GFR 0.71 MG/DL (0.55-1.02); GLOMERULAR FILTRATION RATE > 60.0 (>51); GLUCOSE, FASTING 89 MG/DL (70-105); POTASSIUM SERUM 4.8 MEQ/L (3.5-5.1); SODIUM LEVEL 140 MEQ/L (136-145)
== END ==
LOC: M SMT 08:00
PROVIDERS: ATTEND Family Medicine
DX: Z01.818 Encounter for other preprocedural examination (principal)

== ENCOUNTER 2018-03-05 07:26 | Day surgery (SDC) | payer OTHER ==
[~2018-03-05 07:26] MED LIST changes: +ACETAMINOPHEN 325 MG TAB PO; -AUGM875T28 PO; -CYCL10TA PO; -DIFL150T PO; -NEUR300C PO; +OFLOXACIN 0.3 % (OCUFLOX) OPTH SOL 5ML OS; -OXYC5CAP28 PO; -VITA200016 PO; -ZYRT10TA2 PO
[2018-03-05] MEDS: PHENYLEPHRINE 2.5% OPHTH SOL 2ML OS (08:17)
[2018-03-05] MEDS: PROPARACAINE 0.5% OPHTH SOL 15ML OS (08:17)
[2018-03-05] MEDS: TROPICAMIDE 1% OPHTH SOLN 2ML OS (08:17)
[2018-03-05] MEDS ORDERED: MIDAZOLAM INJ 2 MG/2 ML VIAL (J2250) As Ordered (08:46)
[2018-03-05] MEDS ORDERED: fentaNYL 100 MCG/2 ML INJECTION (J3010) As Ordered (08:46)
[2018-03-05] MEDS: POVIDONE-IODINE 5% OPHTH PREP SOL 30ML As Ordered (09:16)
[2018-03-05] MEDS: CEFUROXIME 1MG/0.1ML INTRACAMERAL INJ As Ordered (09:23)
[2018-03-05] MEDS: LIDOCAINE 0.75%/EPINEPHRINE 0.025% IN BSS 1ML SYR INTRACAMERAL (OR ONLY) As Ordered (09:23)
[2018-03-05] MEDS: DUOVISC (0.50ML VISCOAT/0.55ML PROVISC) OPHTH KIT As Ordered ×2 (09:23)
[2018-03-05] MEDS: BALANCED SALT IRRIGATION SOLUTION 500ML BAG (FOR OR EYE MACHINE) As Ordered (09:23)
[2018-03-05] MEDS ORDERED: ACETAMINOPHEN TAB 650MG DOSE (2X325MG) PO (10:00)
[2018-03-05] MEDS ORDERED: TRIMETHOBENZAMIDE 300 MG CAP PO (10:00)
[2018-03-05] MEDS ORDERED: LR 1,000 ML IV (10:00)
== END 2018-03-05 10:10 | disposition home or self-care (01) ==
LOC: M SDC 07:26
DX: H25.12 Age-related nuclear cataract, left eye (principal); Z88.0 Allergy status to penicillin; Z91.040 Latex allergy status; Z79.899 Other long term (current) drug therapy
CPT/HCPCS: 66984

== ENCOUNTER → 2018-09-11 | Outpatient (CLI) | payer OTHER | LOC: M RAD 16:03 | DX: N93.9 Abnormal uterine and vaginal bleeding, unspecified (principal) ==

== ENCOUNTER → 2018-09-21 | Outpatient (CLI) | payer OTHER ==
[2018-09-21 13:17] LABS: HEMATOCRIT 47.1 % (36.0-47.0); HEMOGLOBIN 15.6 g/dl (12.0-15.5); MEAN CORPUSCULAR HEMOGLOBIN 30.5 pg (27.0-33.0); MEAN CORPUSCULAR HGB CONC 33.1 g/dl (32.0-36.5); PLATELET COUNT, AUTOMATED 197 10^3/uL (150-450); RED BLOOD COUNT 5.12 10^6/uL (4.00-5.40); RED CELL DISTRIBUTION WIDTH 13.1 % (11.5-14.5); WHITE BLOOD COUNT 6.4 10^3/uL (4.0-10.0)
[2018-09-21 13:32] LABS: FREE T4 1.11 NG/DL (0.76-1.46)
== END ==
LOC: M SMT 10:55
DX: N93.9 Abnormal uterine and vaginal bleeding, unspecified (principal)
CPT/HCPCS: 84443

== ENCOUNTER → 2018-10-29 | Outpatient (REF) | payer OTHER ==
[~2018-10-29] MED LIST changes: -ACETAMINOPHEN 325 MG TAB PO; +AUGM875T28 PO; +BIMA01SOL OD; +CYCL10TA PO; +DIFL150T PO; +HYDR12.55; +MULT1TAB10 PO; +MUPI2OI EXT; +NEUR300C PO; -OFLOXACIN 0.3 % (OCUFLOX) OPTH SOL 5ML OS; +OXYC5CAP28 PO; +SAXE1INJ; +VITA200016 PO; +ZYRT10CA5 PO
== END ==
LOC: M LAB REF 17:31
PROVIDERS: ATTEND Obstetrics & Gynecology
DX: N93.9 Abnormal uterine and vaginal bleeding, unspecified (principal)

== ENCOUNTER 2018-12-23 07:00 | Day surgery (SDC) | payer OTHER ==
[~2018-12-23] VITALS: Ht 160 cm; Wt 100.6 kg
[~2018-12-23 07:00] MED LIST changes: +LR 1,000 ML IV ONE; +OPTI0.5D5 OP
[2018-12-23 07:43] LABS: HEMATOCRIT 45.6 % (36.0-47.0); HEMOGLOBIN 15.3 g/dl (12.0-15.5); MEAN CORPUSCULAR HEMOGLOBIN 31.1 pg (27.0-33.0); MEAN CORPUSCULAR HGB CONC 33.6 g/dl (32.0-36.5); MEAN CORPUSCULAR VOLUME 92.7 fl (80.0-96.0); PLATELET COUNT, AUTOMATED 216 10^3/uL (150-450); RED BLOOD COUNT 4.92 10^6/uL (4.00-5.40); WHITE BLOOD COUNT 6.3 10^3/uL (4.0-10.0)
[2018-12-23] MEDS ORDERED: PROPOFOL 200 MG/20 ML VIAL As Ordered ONE (07:57)
[2018-12-23] MEDS ORDERED: ONDANSETRON 4MG/2ML VIAL (J2405) As Ordered ONE (07:57)
[2018-12-23] MEDS ORDERED: LIDOCAINE 2% INJ 100 MG/5 ML SDV (FOR ANES.) As Ordered ONE (07:57)
[2018-12-23] MEDS ORDERED: dexameTHASONE 4 MG/ML 1ML VIAL (J1100) As Ordered ONE (07:57)
[2018-12-23] MEDS ORDERED: fentaNYL 100 MCG/2 ML INJECTION (J3010) As Ordered ONE (07:57)
[2018-12-23] MEDS ORDERED: MIDAZOLAM INJ 2 MG/2 ML VIAL (J2250) As Ordered ONE (07:58)
--- NOTE | 2018-12-23 08:41 | ECGEPIP ---
Stationary ECG Study [facility] Test Date: 2018-12-23 Pat Name: LOU FIGUEROA Department: Room: - Gender: F Labeling Specialist: : 1965 Requested By: SPIKE Garcia Order Number: [id number] Reading MD: Ricarda Lau Measurements Intervals [place] Rate: 65 P: 39 WV: 191 QRS: 18 QRSD: 84 T: 11 QT: 407 QTc: 426 Interpretive Statements SINUS RHYTHM POSSIBLE LEFT ATRIAL ENLARGEMENT LOW QRS VOLTAGE POSSIBLE ANTERIOR MYOCARDIAL INFARCTION, PRWP Incomplete right bundle branch block NONSPECIFIC STT ABN NO PRIOR Electronically Signed On 12-23-2018 8:41:40 EST by Ricarda Lau
[2018-12-23] MEDS ORDERED: SILVER NITRATE APPLICATOR As Ordered ONE (09:46)
[2018-12-23] MEDS ORDERED: METOCLOPRAMIDE INJ 10MG/2ML VIAL (J2765) IV PRN (10:00)
[2018-12-23] MEDS ORDERED: MEPERIDINE INJ 25 MG/ML VIAL (J2175) IV PRN (10:00)
[2018-12-23] MEDS ORDERED: PERCOCET 5MG/325MG TAB PO PRN (10:00)
[2018-12-23] MEDS ORDERED: fentaNYL 100 MCG/2 ML INJECTION (J3010) IV PRN (10:00)
[2018-12-23] MEDS ORDERED: ONDANSETRON 4MG/2ML VIAL (J2405) IV PRN (10:00)
[2018-12-23] MEDS ORDERED: LR 1,000 ML IV SCH ×2 (10:00)
[2018-12-23 11:20] VITALS: BP 110/66
--- NOTE | 2018-12-25 13:52 | RO ---
DATE OF PROCEDURE: 12/23/2018 PREOPERATIVE DIAGNOSIS: Abnormal uterine bleeding, endometrial polyp. POSTOPERATIVE DIAGNOSIS: Abnormal uterine bleeding, endometrial polyp. PROCEDURE PERFORMED: 1. Hysteroscopy and dilation and curettage (D and C). 2. MyoSure polypectomy. SURGEON: Dr. Brian Welsh DO FACOG CONFIDENTIAL INVESTIGATOR: None. ANESTHESIA: General via LMA. INTRAOPERATIVE FINDINGS: Endometrial mass approximately 1-2 cm in greatest dimension located anterior uterine fundus at the level just beyond the internal os. SPECIMENS TO PATHOLOGY: 1. Morcellated fragments of endometrial polyp. 2. Endometrial curettings. ESTIMATED BLOOD LOSS: 5 mL. FLUIDS REPLACED: 300 mL lactated Ringer's. FLUID DEFICIT: 186 mL of normal saline. DRAINS: In-and-out catheter. URINE OUTPUT: 60 mL COMPLICATIONS: None. PREOPERATIVE ANTIBIOTICS: None indicated. INDICATIONS FOR SURGERY: 53-year-old with abnormal uterine bleeding subsequently found to have an endometrial polyp per in-office hysteroscopy. Decision was made to proceed with an endometrial polypectomy, hysteroscopy and D and C under anesthesia. DESCRIPTION OF PROCEDURE: The patient was counseled and consented on the risks, benefits, indications and alternatives to the procedure. Informed consent was obtained. She was taken to operating room with an IV running and placed on the operating table in the dorsal supine position. General anesthesia was administered and the airway secured without any difficulty. She was placed in the high lithotomy position. She was prepared and draped in the normal sterile fashion. A time-out was performed per protocol. The bladder was drained with a sterile in-and-out catheter. A sterile speculum was placed with good visualization of the cervix. The anterior lip of the cervix was grasped with a single-tooth tenaculum and downward traction was applied. The cervix was sequentially dilated with Gus dilators. The hysteroscope was placed transcervically into the intrauterine cavity with the findings noted above. The MyoSure device was used to morcellate the endometrial mass. Once the mass was morcellated in its entirety, the rest of the endometrial cavity was clear with atrophic appearing endometrium throughout. The MyoSure device was removed. The hysteroscope was removed. The single-tooth tenaculum was removed. A light curettage was performed throughout the endometrial cavity with minimal tissue returned. Minimal blood from the cervical os was noted. The tenaculum sites cauterized with silver nitrate. Sponge, lap, needle and instrument counts were correct. The patient tolerated the entire procedure well. She was transferred to the postanesthesia care unit (PACU) in good and stable condition. AMILCAR
== END 2018-12-23 11:30 | disposition home or self-care (01) ==
LOC: M SDC 07:00
PROVIDERS: ATTEND Obstetrics & Gynecology
DX: N93.9 Abnormal uterine and vaginal bleeding, unspecified (principal); N84.0 Polyp of corpus uteri; Z91.040 Latex allergy status; Z88.1 Allergy status to other antibiotic agents; Z79.899 Other long term (current) drug therapy
CPT/HCPCS: 36415; 58563; 85027; 86850; 86900; 86901; 88305; 93005; J1100; J2250; J2405; J3010

== ENCOUNTER 2019-03-04 11:36 | Day surgery (SDC) | payer OTHER ==
[~2019-03-04] VITALS: Ht 160 cm; Wt 98.9 kg
[~2019-03-04 11:36] MED LIST changes: +ALL10TAB28 PO; +BALANCED SALT IRRIGATION SOLUTION 500ML BAG (FOR OR EYE MACHINE) As Ordered ONE; +CEFUROXIME 1MG/0.1ML INTRACAMERAL INJ As Ordered ONE; +DUOVISC (0.50ML VISCOAT/0.55ML PROVISC) OPHTH KIT As Ordered ONE; +HYDR12.55 PO; +LIDOCAINE 0.75%/EPINEPHRINE 0.025% IN BSS 1ML SYR INTRACAMERAL (OR ONLY) As Ordered ONE; -LR 1,000 ML IV ONE; +MULTCAP PO; +PHENYLEPHRINE 2.5% OPHTH SOL 2ML OD ONE; +POVIDONE-IODINE 5% OPHTH PREP SOL 30ML As Ordered ONE; +PROPARACAINE 0.5% OPHTH SOL 15ML OD ONE; +SAXE1INJ SQ; +TROPICAMIDE 1% OPHTH SOLN 2ML OD ONE
[2019-03-04] MEDS ORDERED: MIDAZOLAM INJ 2 MG/2 ML VIAL (J2250) As Ordered ONE (13:28)
[2019-03-04] MEDS ORDERED: fentaNYL 100 MCG/2 ML INJECTION (J3010) As Ordered ONE (13:28)
[2019-03-04] MEDS ORDERED: BALANCED SALT IRRIGATION SOLUTION 500ML BAG (FOR OR EYE MACHINE) As Ordered ONE (14:07)
[2019-03-04 14:49] VITALS: BP 123/75
--- NOTE | 2019-03-08 16:40 | RO ---
DATE OF PROCEDURE: 03/04/2019 PREOPERATIVE DIAGNOSES: 1. Visually significant nuclear sclerotic cataract right eye. 2. Primary open angle, moderate stage right eye. POSTOPERATIVE DIAGNOSES: 1. Visually significant nuclear sclerotic cataract right eye. 2. Primary open angle glaucoma, moderate stage right eye. PROCEDURE: 1. Cataract extraction with use of phacoemulsification and placement of intraocular lens, AU00T0, 21.0 D, right eye. 2. Placement of Glaukos iStent right eye. 3. Use of Kahook dual blade, right eye SURGEON: Thomas Cole DO ACCOUNTING POLICY CONSULTANT: None. ANESTHESIA: Local with monitored anesthesia care (MAC). COMPLICATIONS: None. POSTOPERATIVE CONDITION: Stable. INDICATIONS FOR SURGERY: 1. Blurred vision affecting patients activities of daily living. DESCRIPTION OF PROCEDURE: The patient was seen in the preoperative area and properly identified. The correct operative eye was identified and marked. The patient received topical anesthetic, antibiotics, and topical dilating drops. The patient was then transferred to the operating room. The correct side was re-identified, and a time-out was performed. The eye was prepped and draped in a sterile fashion. The eyelids were isolated with Tegaderm tape, and the lids were held open with an adjustable speculum. A 1.0 mm paracentesis incision was made. Intraocular preservative-free Shugarcaine was then injected into the anterior chamber. Viscoelastic was then injected into the anterior chamber through the paracentesis. Using a 2.4 mm sharp-tipped keratome, the anterior chamber was entered via a temporal clear cornea incision. A continuous curvilinear capsulorrhexis was created with Utrata forceps. Hydrodissection was performed with balanced salt solution (BSS) on a blunt cannula until the nucleus was able to rotate freely. The crystalline lens was phacoemulsified and aspirated. Irrigation/aspiration was used to remove the cortical material. Cohesive viscoelastic was placed into the capsular bag to deepen it. The implant was placed into the capsular bag and allowed to unfold. Placement was confirmed by visualizing the anterior capsulorrhexis. Additional viscoelastic was placed in the anterior chamber and on top of the cornea. The head was untaped and rotated away. The microscope was rotated to 45 degrees. A gonioprism was placed on the cornea, and the angle was visualized. An iStent was placed into the trabecular meshwork without difficulty. A small gush of heme was noted at the iStent snorkel tip, indicating appropriate placement. A gentle tapping motion was used to seat the stent into position. The Kahook dual blade was placed into the anterior chamber. The blade was used to penetrate the trabecular meshwork, and the blade was passed for approximately 2 clock hours forward and then reversed and passed for 2 clock hours. The head was placed face up and the microscope to 0 degrees. Irrigation/aspiration was used to remove the viscoelastic. The clear corneal incision was hydrated with BSS on a blunt cannula. The lens was well positioned. The incisions were then tested for leaks and found to be negative. The eye was then palpated for appropriate pressure and adjusted accordingly with BSS. The eyelid speculum was then carefully removed. A shield was placed over the eye. The patient tolerated the procedure well and was discharged to the recovery unit in a stable condition. AMILCAR
== END 2019-03-04 14:49 | disposition home or self-care (01) ==
LOC: M SDC 11:36
PROVIDERS: ATTEND Ophthalmology
DX: H25.11 Age-related nuclear cataract, right eye (principal); H40.1111 Primary open-angle glaucoma, right eye, mild stage; Z91.040 Latex allergy status; Z79.899 Other long term (current) drug therapy; Z88.1 Allergy status to other antibiotic agents
CPT/HCPCS: 65820; 66183; 66984; C1783; J2250; J3010

== ENCOUNTER → 2019-05-05 | Outpatient (CLI) | payer OTHER ==
[~2019-05-05] MED LIST changes: -BALANCED SALT IRRIGATION SOLUTION 500ML BAG (FOR OR EYE MACHINE) As Ordered ONE; -CEFUROXIME 1MG/0.1ML INTRACAMERAL INJ As Ordered ONE; +CELE1CAP88 PO; +COLA100C5 PO; -DUOVISC (0.50ML VISCOAT/0.55ML PROVISC) OPHTH KIT As Ordered ONE; +IBUP80TA PO; -LIDOCAINE 0.75%/EPINEPHRINE 0.025% IN BSS 1ML SYR INTRACAMERAL (OR ONLY) As Ordered ONE; +PERCOCET PO; -PHENYLEPHRINE 2.5% OPHTH SOL 2ML OD ONE; -POVIDONE-IODINE 5% OPHTH PREP SOL 30ML As Ordered ONE; -PROPARACAINE 0.5% OPHTH SOL 15ML OD ONE; -TROPICAMIDE 1% OPHTH SOLN 2ML OD ONE
--- NOTE | 2019-05-07 00:04 | ECGEPIP ---
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
== END ==
LOC: M EKG 14:14
PROVIDERS: ATTEND Anesthesiology
DX: Z01.818 Encounter for other preprocedural examination (principal)

== ENCOUNTER 2019-05-12 09:43 | Day surgery (SDC) | payer OTHER ==
[2019-05-12] VITALS (7 sets, daily range): BP systolic 97–130; BP diastolic 53–60
[~2019-05-12] VITALS: Ht 157.5 cm; Wt 100.2 kg
[2019-05-12] MEDS: hydroCHLOROthiazide 12.5 MG CAPSULE PO SCH (09:00)
[~2019-05-12 09:43] MED LIST changes: -COLA100C5 PO; -IBUP80TA PO; +LR 1,000 ML IV ONE; -PERCOCET PO
[2019-05-12 10:15] LABS: HEMATOCRIT 49.9 % (36.0-47.0); HEMOGLOBIN 16.5 g/dl (12.0-15.5); MEAN CORPUSCULAR HEMOGLOBIN 30.2 pg (27.0-33.0); MEAN CORPUSCULAR HGB CONC 33.1 g/dl (32.0-36.5); MEAN CORPUSCULAR VOLUME 91.4 fl (80.0-96.0); PLATELET COUNT, AUTOMATED 225 10^3/uL (150-450); RED BLOOD COUNT 5.46 10^6/uL (4.00-5.40)
[2019-05-12 10:42] LABS: HCG, SERUM QUALITATIVE NEGATIVE (NEGATIVE)
[2019-05-12] MEDS ORDERED: METHYLENE BLUE 0.5% (5MG/ML) 10 ML AMP (PROVAYBLUE)(Q9968 PER 1MG) As Ordered ONE (11:11)
[2019-05-12] MEDS ORDERED: BUPIVACAINE HCL 0.25% 30 ML VIAL As Ordered ONE (11:11)
[2019-05-12] MEDS ORDERED: PROPOFOL 200 MG/20 ML VIAL As Ordered ONE ×2 (11:20→12:11)
[2019-05-12] MEDS ORDERED: LIDOCAINE 2% INJ 100 MG/5 ML SDV (FOR ANES.) As Ordered ONE (11:20)
[2019-05-12] MEDS ORDERED: fentaNYL 250 MCG/5 ML INJECTION (J3010) As Ordered ONE (11:20)
[2019-05-12] MEDS ORDERED: dexameTHASONE 4 MG/ML 1ML VIAL (J1100) As Ordered ONE (11:20)
[2019-05-12] MEDS ORDERED: ROCURONIUM BROMIDE 50 MG/5 ML VIAL As Ordered ONE ×2 (11:20→12:41)
[2019-05-12] MEDS ORDERED: MIDAZOLAM INJ 2 MG/2 ML VIAL (J2250) As Ordered ONE (11:21)
[2019-05-12] MEDS ORDERED: PHENYLephrine HCL 500 MCG/5 ML (100MCG/ML) SYRINGE (J2370) As Ordered ONE (12:03)
[2019-05-12] MEDS ORDERED: ePHEDrine SULFATE 25 MG/5 ML(5MG/ML) SYRINGE As Ordered ONE (12:21)
[2019-05-12] MEDS ORDERED: HYDROmorphone HCL 2 MG/ML 1ML VIAL (J1170) As Ordered ONE (12:55)
[2019-05-12] MEDS ORDERED: KETOROLAC 60 MG/2 ML VIAL (J1885) As Ordered ONE (12:55)
[2019-05-12] MEDS ORDERED: ACETAMINOPHEN 1000MG 100ML IV BTL (OFIRMEV) (J0131 PER 10MG) As Ordered ONE (12:55)
[2019-05-12] MEDS ORDERED: SEVOFLURANE INHAL SOLN 250 ML BTL As Ordered ONE (13:04)
[2019-05-12] MEDS ORDERED: ONDANSETRON 4MG/2ML VIAL (J2405) As Ordered ONE (14:12)
[2019-05-12] MEDS ORDERED: PROMETHAZINE INJ 25 MG/ML VIAL (J2550) IV PRN (14:45)
[2019-05-12] MEDS ORDERED: ONDANSETRON 4MG/2ML VIAL (J2405) IV PRN ×2 (14:45→15:15)
[2019-05-12] MEDS ORDERED: PERCOCET 5MG/325MG TAB PO PRN ×2 (14:45→15:15)
--- NOTE | 2019-05-12 15:08 | NUR ---
OPERATIVE NOTE DATE OF PROCEDURE: 05/12/2019 PREOPERATIVE DIAGNOSES: 1. Abnormal uterine bleeding POSTOPERATIVE DIAGNOSES: 1. Abnormal uterine bleeding 2. Uterine leiomyomas PROCEDURE PERFORMED: Robotic-assisted total laparoscopic hysterectomy, bilateral salpingo-oophorectomy and cystoscopy. SURGEON: Brian Welsh DO FACOG. [place] REPAIR TECHNICIAN: Frandy Lux, PGY-3, Nazia Montes, STAFF GENETIC COUNSELOR-C (needed for uterine manipulation). ANESTHESIA: General endotracheal. SPECIMENS TO PATHOLOGY: Uterus, cervix with bilateral fallopian tube (segments) and ovaries. ESTIMATED BLOOD LOSS: 100 mL. FLUIDS REPLACED: 1.2 liters lactated Ringer's. DRAINS: Graham catheter ; 100 mL of urine output COMPLICATIONS: None. PREOPERATIVE ANTIBIOTICS: Ancef 2g IV x 1 (given within 30 minutes of procedure start time) INTRAOPERATIVE FINDINGS: Uterus was approximately 8-10 cm in greatest dimension. The uterus sounded to 8 cm. Irregular shape and contour c/w uterine leiomyomas. Bilateral ovaries were normal in appearance. Normal appear ing ovaries bilaterally. Cystoscopic findings: No bladder injury. No suture material. Bilateral ureteral orifice efflux visualized after IV infusion of methylene blue. Incidental finding of two bladder masses, each less than 1cm and polypoid in appearance. INDICATION: The patient is a 53-year-old with a longstanding history of abnormal uterine bleeding. An endometrial ablation did not adequately reduce her uterine bleeding. Preoperative endometrial sampling revealed no evidence of EIN. She expressed desire for definitive management via hysterectomy and also requested bilateral salpingo-oophorectomy. She was extensively counseled regarding the risks of the procedure. PROCEDURE: The patient was counseled and consented on the risks, benefits, indications, and alternatives of the procedure. Informed consent was obtained. She was taken to the operating room with an IV running and placed on the operating table in the dorsal supine position. General anesthesia was administered and airway secured without any difficulty. The patient was placed in a level horizontal low lithotomy position. She was prepped and draped in a normal sterile fashion. A time-out was performed per protocol. A Graham catheter was p laced under sterile conditions. A sterile speculum was placed into the vagina with good visualization of the cervix. The anterior lip of the cervix was grasped with a single-tooth tenaculum and downward traction was applied. The uterus was sounded to 8 cm. The cervix was sequentially dilated with Gus dilators up to #16. The anterior and posterior lip were tagged with and interru pted stitch using #0 Vicryl suture. The VCare uterine manipulator was placed in typical fashion without any difficulty. The single-toothed tenaculum was removed. The sterile speculum was removed. The VCare uterine manipulator was noted to be adequately in place. A glove switch was performed. Attention was turned to the abdomen. A 2 mm umbilical incision was made with the 11 blade. The Veress needle was placed through this incision into the intraperitoneal cavity. Intraperitoneal placement was confirmed with the following checks: no resistance/ease of flow of normal saline from the attached syringe through the Veress needle, no return of blood/fluid/succus upon aspirating with the attached syringe, a positive drop test, and the opening pressure during insufflation was less than 1 0 mmHg. The abdomen was insufflated with 2.5 liters of gas. The Veress needle was removed. An 8mm horizontal midline, supraumbilical incision was made with the 11 blade. Through this incision, a DaVinci laparoscopic trocar was placed under direct visualization technique into the intraperitoneal cavity. Intraperitoneal placement was confirmed. The patient was placed in a low lithotomy steep Trendelenberg position. The right and left lower quadrant port sites were placed via 8 mm incisions using the 11 blade. The 8 mm da Rapit cannulas were placed under laparoscopic guidance on both sides. An additional 8 mm accessory port-site was placed under laparoscopic guidance in the left upper quadrant. Given the successful placement of all the DaVinci cannulas, the robot was easily side-docked. Attention was turned to the GateRocketi robotic console. The right fallopian tube, utero-ovarian ligament, and round ligament were sequentially clamped, coagulated and transected with the DaVinci vessel sealer device. The Da Arpit vessel sealer was used to dissect and mobilize the right-sided half of the vesicouterine peritoneum/"bladder flap" with both blunt and bipolar dissection. The right uterine vasculature was skeletonized and identified. Excellent hemostasis was achieved. The left fallopian tube, utero-ovarian ligament and round ligament were sequentially clamped, coagulated and transected using the Da Arpit vessel sealer device. The left uterine vasculature was skeletonized and easily identified. Excellent hemostasis was noted. The remainder of the vesicouterine peritoneum was dissected and mobilized along the anterior portion of the VCare uterine manipulator cup in order to complete the bladder flap. This resulted in adequate mobilization/displacement of the bladder away from the cervix. During all of the dissection described above, an occasional small bleeding vessel needed to be cauterized with the DaVinci Force bipolar forceps. The right and left uterine vasculature were sequentially clamped, coagulated and transected with both DaVinci Force bipolar forceps and vessel sealer instruments. Excellent blanching of the uterus was noted, thus indicating that the blood supply to the uterus was obliterated. Excellent hemostasis was noted. The DaVinci monopolar shelly were used to create the circumferential colpotomy around the VCare cervical cup border. Incidental small bleeding vaginal vessels were cauterized with the DaVinci Force bipolar forceps. This circumferential incision was completed and the uterus with the cervix was noted to be fully ampu tated as one unit. This specimen was brought through the colpotomy into the vag thee. Insufflation of the intraperitoneal cavity remained adequate. Attention was turned to the right IP ligament. The distal right IP ligament was noted to be an adequate distance from the right ureter. The right IP ligament was sequentially clamped, coagulated and transected, thus amputating the right ovary and fallopian tube. This specimen was placed through the colpotomy into the vagina. The distal left IP ligament was identified and noted to be an adequate distance from the left ureter. The left IP ligament was sequentially clamped, coagulated and transected, thus amputating the left ovary and fallopian tube. This specimen was placed through the colpotomy into the vagina. The vaginal cuff was closed in running fashion with V-Loc suture. Excellent hemostasis of the vaginal cuff was noted. The lower abdomen/pelvis was irrigated and suctioned, thus removing all blood and clot. Excellent hemostasis was noted. Cam was placed over the surgical sites to maintain hemostasis. The insufflation gas was released from the intraperitoneal cavity. All cannulas were removed. The robot was undocked without any difficulty. The patient was taken out of steep Trendelenburg and placed back into a level horizontal low lithotomy position. The Graham catheter was removed. A 30 degre e cystoscope was placed transurethrally into the bladder. The entire bladder mucosa was examined. There was no evidence of a bladder injury or suture mater ial. Brisk bilateral ureteral orifice efflux of urine was visualized after IV infusion of methylene blue. The cystoscope was removed and the Graham catheter was replaced. The vagina was copiously irrigated. The sponge, needle, and instrument counts were correct. A glove switch was performed. Attention was turned back to the abdomen. An additional laparoscopic survey revealed continued hemostasis. The gas was released from the abdomen and the cannulas were removed. Each skin incision was closed with # 4-0 Monocryl in subcuticular fashion and reinforced with Dermabond. Sponge, needle, and instrument counts were again correct. The patient tolerated the entire procedure well. She was transferred to the postanesthesia care unit in good and stable condition. Zuly Welsh DO, FACOG.
[2019-05-12] MEDS ORDERED: LR 1,000 ML IV SCH (15:15)
[2019-05-12] MEDS ORDERED: fentaNYL 100 MCG/2 ML INJECTION (J3010) IV PRN (15:15)
[2019-05-12] MEDS ORDERED: HYDROMORPHONE HCL 0.5 MG/ 0.5 ML SYRINGE (J1170 PER 1) IV PRN (15:15)
[2019-05-12] MEDS ORDERED: METOCLOPRAMIDE INJ 10MG/2ML VIAL (J2765) IV PRN (15:15)
[2019-05-12] MEDS: KETOROLAC 30 MG/ML VIAL (J1885) IV SCH (18:42)
[2019-05-12] MEDS: DOCUSATE SODIUM 100 MG CAP PO SCH (20:09)
[2019-05-12] MEDS: PERCOCET 5MG/325MG TAB PO PRN (21:08)
[2019-05-13] VITALS: BP 97/55
[2019-05-13] MEDS: KETOROLAC 30 MG/ML VIAL (J1885) IV SCH ×2 (00:52→06:16)
[2019-05-13 04:00] VITALS: BP 91/52
[2019-05-13] MEDS: PERCOCET 5MG/325MG TAB PO PRN ×2 (04:03→08:08)
[2019-05-13 07:20] LABS: BASO % 0.3 % (0.0-1.0); HEMATOCRIT 44.3 % (36.0-47.0); HEMOGLOBIN 14.9 g/dl (12.0-15.5); LYMPH # 1.2 10^3/uL (1.5-4.5); LYMPH % 7.9 % (24.0-44.0); MEAN CORPUSCULAR HEMOGLOBIN 31.4 pg (27.0-33.0); MEAN CORPUSCULAR HGB CONC 33.6 g/dl (32.0-36.5); MEAN CORPUSCULAR VOLUME 93.5 fl (80.0-96.0); MONO # 0.5 10^3/uL (0.0-0.8); MONO % 3.5 % (0.0-5.0); NEUTROPHILS # 13.1 10^3/uL (1.8-7.7); NEUTROPHILS % 87.8 % (36.0-66.0); PLATELET COUNT, AUTOMATED 189 10^3/uL (150-450); RED BLOOD COUNT 4.74 10^6/uL (4.00-5.40); WHITE BLOOD COUNT 14.9 10^3/uL (4.0-10.0)
[2019-05-13 08:00] VITALS: BP 101/55
[2019-05-13] MEDS: hydroCHLOROthiazide 12.5 MG CAPSULE PO SCH (08:06)
[2019-05-13] MEDS: DOCUSATE SODIUM 100 MG CAP PO SCH (08:06)
[2019-05-13 08:08] VITALS: BP 101/55
[2019-05-13] MEDS ORDERED: COLA100C5 PO (08:53)
[2019-05-13] MEDS ORDERED: IBUP80TA PO (08:53)
[2019-05-13] MEDS ORDERED: PERCOCET PO (08:53)
[2019-05-13] MEDS ORDERED: CETIRIZINE (ZyrTEC) 10 MG TAB PO SCH (09:00)
--- NOTE | 2019-05-13 09:13 | NUR ---
POD#1 s/p RALH / BSO / cysto Uncomplicated. Incidental finding of two bladder polypoid masses. S: Pain well controlled, voiding spontaneously, minimal to no VB, tolerating PO, ambulating without difficulty/assistance. No SOB/CP/fever/myalgias. O: VSS,normotensive,afebrile H: RRR no m/r/g L: CTA b/l no w/c/r/r ABD: soft,nt,nd, incisions c/d/i with dermabond, no surrounding erythema or induration. Ext: no c/c/e A/P: POD#1. Pt recovering appropriately. HDS/af/good pain control -Intraoperative findings discussed; Outpatient urology referral for bladder masses. -Routine postoperative instructions / precautions reviewed. Zuly Welsh DO
[2019-05-13] MEDS ORDERED: IBUPROFEN 800 MG TAB PO SCH (21:00)
== END 2019-05-13 09:07 | disposition home or self-care (01) ==
LOC: M SDC 09:43 → M PED 13:30 → M SDC 05-13 09:07
PROVIDERS: ATTEND Obstetrics & Gynecology
DX: N93.9 Abnormal uterine and vaginal bleeding, unspecified (principal); D25.1 Intramural leiomyoma of uterus; R01.1 Cardiac murmur, unspecified; M54.2 Cervicalgia; J30.89 Other allergic rhinitis; E66.9 Obesity, unspecified; Z68.39 Body mass index [BMI] 39.0-39.9, adult; Z88.1 Allergy status to other antibiotic agents; Z91.040 Latex allergy status; Z91.048 Other nonmedicinal substance allergy status; Z79.899 Other long term (current) drug therapy; Z96.9 Presence of functional implant, unspecified; Z98.51 Tubal ligation status; Z96.1 Presence of intraocular lens; Z98.41 Cataract extraction status, right eye; Z98.42 Cataract extraction status, left eye
CPT/HCPCS: 36415; 58571; 84703; 85025; 85027; 86850; 86900; 86901; 88309; J0131; J0690; J1100; J1170; J1885; J2250; J2370; J2405; J3010; Q9968

== ENCOUNTER → 2019-06-09 | Outpatient (CLI) | payer OTHER ==
[~2019-06-09] MED LIST changes: +COLA100C5 PO; +IBUP80TA PO; -LR 1,000 ML IV ONE; +PERCOCET PO
[2019-06-09 11:29] LABS: ALBUMIN 3.4 GM/DL (3.2-5.2); ALT/SGPT 34 U/L (12-78); BILIRUBIN,TOTAL 0.7 MG/DL (0.2-1.0); BLOOD UREA NITROGEN 21 MG/DL (7-18); C REACTIVE PROTEIN QUANTITATIV < 0.30 MG/DL (0.00-0.30); CALCIUM LEVEL 8.7 MG/DL (8.5-10.1); CARBON DIOXIDE LEVEL 27 MEQ/L (21-32); CHLORIDE LEVEL 111 MEQ/L (98-107); CHOLESTEROL LEVEL 194 MG/DL (<200); CREATININE FOR GFR 0.92 MG/DL (0.55-1.30); FREE T4 1.05 NG/DL (0.76-1.46); GLOMERULAR FILTRATION RATE > 60.0 (>51); GLUCOSE, FASTING 79 MG/DL (70-100); HDL CHOLESTEROL 50 MG/DL (>40); LDL CHOLESTEROL 124 MG/DL (<100); NON-HDL-C 144 MG/DL; POTASSIUM SERUM 4.5 MEQ/L (3.5-5.1); SODIUM LEVEL 142 MEQ/L (136-145); TOTAL PROTEIN 7.6 GM/DL (6.4-8.2); TRIGLYCERIDES LEVEL 98 MG/DL (<150)
[2019-06-09 11:33] LABS: TOTAL 25(OH) VITAMIN D 21.1 NG/ML (30.0-100.0)
[2019-06-18 00:12] LABS: CYCLIC CITRULLINATED PEPTIDE 4 units (0-19); HLA-B27 Positive (.); Lyme Disease IgG Ab 18 kDa Ban Absent (.); Lyme Disease IgG Ab 23 kDa Ban Absent (.); Lyme Disease IgG Ab 28 kDa Ban Absent (.); Lyme Disease IgG Ab 30 kDa Ban Absent (.); Lyme Disease IgG Ab 39 kDa Ban Absent (.); Lyme Disease IgG Ab 41 kDa Ban Absent (.); Lyme Disease IgG Ab 45 kDa Ban Absent (.); Lyme Disease IgG Ab 58 kDa Ban Absent (.); Lyme Disease IgG Ab 66 kDa Ban Present (.); Lyme Disease IgG Ab 93 kDa Ban Absent (.); Lyme Disease IgG West Blot Int Negative (.); Lyme Disease IgG/IgM Antibodie 2.31 ISR (0.00-0.90); Lyme Disease IgM Ab 23 kDa Ban Absent (.); Lyme Disease IgM Ab 39 kDa Ban Absent (.); Lyme Disease IgM Ab 41 kDa Ban Absent (.); Lyme Disease IgM Ab Quantitati <0.80 index (0.00-0.79); Lyme Disease IgM West Blot Int Negative (.)
== END ==
LOC: M SMT 08:05
PROVIDERS: ATTEND Physician Assistant
DX: M79.673 Pain in unspecified foot (principal); E66.09 Other obesity due to excess calories

== ENCOUNTER → 2019-06-25 | Outpatient (REF) | payer OTHER ==
[2019-06-25 13:44] LABS: APPEARANCE, URINE CLEAR (CLEAR); BACTERIA, URINE AUTO NEGATIVE (NEGATIVE); BILIRUBIN, URINE AUTO NEGATIVE (NEGATIVE); BLOOD, URINE BLOOD NEGATIVE (NEGATIVE); COLOR, URINE YELLOW (YELLOW); GLUCOSE, URINE (UA) AUTO NEGATIVE (NEGATIVE); KETONE, URINE AUTO NEGATIVE (NEGATIVE); LEUKOCYTE ESTERASE, URINE AUTO NEGATIVE (NEGATIVE); NITRITE, URINE AUTO NEGATIVE (NEGATIVE); PROTEIN, URINE AUTO NEGATIVE (NEGATIVE); RBC, URINE AUTO 0 /HPF (0-3); SPECIFIC GRAVITY URINE AUTO 1.006 (1.002-1.035); SQUAMOUS EPITHELIAL CELL UR AU 0 /HPF (0-6); UROBILINOGEN, URINE AUTO 0.2 mg/dL (0.0-2.0); WBC, URINE AUTO 1 /HPF (0-3)
== END ==
LOC: M SMT 12:43
PROVIDERS: ATTEND Nurse Practitioner Women's Health
DX: N32.89 Other specified disorders of bladder (principal)